=== PATIENT | female | born 1950 | race Caucasian/White ===

== ENCOUNTER 2020-01-15 10:54 | Inpatient (IN) | payer OTHER ==
[2020-01-15 12:13] LABS: Protime INR 1.14
[2020-01-15 12:15] LABS: Basophils % 0.2 % (0-1.3); Hematocrit 24.7 % (36.0-45.0); Lymphocytes % 12.4 % (15.3-44.8); MPV 8.5 fL (7.6-11.3); RBC Red Blood Cell Count 3.58 M/uL (3.86-4.86)
--- NOTE | 2020-01-15 12:36 | EKG ---
Test Date: 2020-01-15 Test Time: 11:26:40 Oven Baker: MAULIK MEASUREMENT RESULTS: Intervals: Rate: 90 OR: 130 QRSD: 78 QT: 348 QTc: 425 Mckenzie: P: 41 OR: 130 QRS: -23 T: 30 INTERPRETIVE STATEMENTS: Normal sinus rhythm Possible Left atrial enlargement RSR' or QR pattern in V1 suggests right ventricular conduction delay Left ventricular hypertrophy Abnormal ECG No previous ECG available for comparison Electronically Signed On 01-15-20 12:35:21 CDT by Tee Daniels
[2020-01-15 12:43] LABS: Anisocytosis SLIGHT; Blood Morphology Comment NOTED (NOT SEEN); Hypochromasia 1+; Platelet Estimate ADEQ; Urine White Blood Cell Casts OK
--- NOTE | 2020-01-15 12:43 | RAD REPORT ---
EXAM DESCRIPTION: RAD - Chest Single View - 01/15/2020 12:02 pm CLINICAL HISTORY: Possible CVA/TIA COMPARISON: None TECHNIQUE: AP portable chest image was obtained 01/15/2020 12:02 pm . FINDINGS: Lungs are clear. Heart and vasculature are normal. No measurable pleural effusion and no p neumothorax. No acute bony abnormality seen. No acute aortic finding. Hiatal hernia is present in the midline lower chest. IMPRESSION: No acute cardiopulmonary process.
[2020-01-15 12:55] LABS: ALT/SGPT 20 U/L (12-78); AST/SGOT 28 U/L (15-37); Albumin 4.4 g/dL (3.4-5.0); Alkaline Phosphatase 36 U/L (45-117); BUN Blood Urea Nitrogen 20 mg/dL (7-18); Bicarbonate 30 mmol/L (21-32); Bilirubin Direct 0.1 mg/dL (0-0.2); Bilirubin Total 0.4 mg/dL (0.2-1.0); Glucose Level 119 mg/dL (74-106); NT PRO-BNP 632 pg/mL (<125); Sodium Level 142 mmol/L (136-145); Troponin (Emerg Dept Use Only) < 0.02 ng/mL (0.0-0.045)
[2020-01-15 13:02] LABS: Magnesium 1.3 mg/dL (1.8-2.4); Potassium 2.9 mmol/L (3.5-5.1)
--- NOTE | 2020-01-15 13:05 | EDPHYS ---
Physician Documentation [facility] Name: Andressa Campo Age: 69 yrs Sex: Female : 1950 Arrival Date: 01/15/2020 Time: 11:00 Bed 17 Private MD: ED Physician Fahad Gill HPI: 01/14 11:42 This 69 yrs old Female presents to ER via Unassigned with complaints of kdr Abnormal Lab Results, Kidney Problem. 11:42 Dr. Valdes Called prior to the patient's arrival indicating his concern because the kdr patient had not been feeling well. He had ordered some labs which seemed to indicate worsening renal function and significant drop in Hgb. The patient does not have a focal complaint and on my interview, she is mildly confused and not able to give direct answers to questions. Onset: The symptoms/episode began/occurred gradually, at an unknown time. Severity of symptoms: At their worst the symptoms were. 13:06 It is unknown whether or not the patient has had similar symptoms in the past. The kdr patient has been recently seen by a physician: the patient's primary care provider. The patient appears slightly altered and has very tangential speech.. Historical: - Allergies: 11:44 No Known Allergies; iw - Immunization history:: Adult Immunizations up to date. - Social history:: Smoking status: Patient denies any tobacco usage or history of. ROS: 13:06 Constitutional: Negative for fever, chills, and weight loss - feel genraly weak and kdr mildly confused Eyes: Negative for injury, pain, redness, and discharge, ENT: Negative for injury, pain, and discharge, Neck: Negative for injury, pain, and swelling, Cardiovascular: Negative for chest pain, palpitations, and edema, Respiratory: Negative for shortness of breath, cough, wheezing, and pleuritic chest pain, Abdomen/GI: Negative for abdominal pain, nausea, vomiting, diarrhea, and constipation, Back: Negative for injury and pain, : Negative for injury, bleeding, discharge, and swelling, MS/Extremity: Negative for injury and deformity, Skin: Negative for injury, rash, and discoloration, Psych: Negative for depression, anxiety, suicide ideation, homicidal ideation, and hallucinations, Allergy/Immunology: Negative for hives, rash, and allergies, Endocrine: Negative for neck swelling, polydipsia, polyuria, polyphagia, and marked weight changes, Hematologic/Lymphatic: Negative for swollen nodes, abnormal bleeding, and unusual bruising. 13:06 Neuro: Positive for altered mental status, weakness. Exam: 13:06 Constitutional: This is a well developed, well nourished patient who is awake, alert, kdr and in no acute distress. Head/Face: Normocephalic, atraumatic. Eyes: Pupils equal round and reactive to light, extra-ocular motions intact. Lids and lashes normal. Conjunctiva and sclera are non-icteric and not injected. Cornea within normal limits. Periorbital areas with no swelling, redness, or edema. Neck: Trachea midline, no thyromegaly or masses palpated, and no cervical lymphadenopathy. Supple, full range of motion without nuchal rigidity, or vertebral point tenderness. No Meningismus. Chest/axilla: Normal chest wall appearance and motion. Nontender with no deformity. No lesions are appreciated. Cardiovascular: Regular rate and rhythm with a normal S1 and S2. No gallops, murmurs, or rubs. Normal PMI, no JVD. No pulse deficits. Respiratory: Lungs have equal breath sounds bilaterally, clear to auscultation and percussion. No rales, rhonchi or wheezes noted. No increased work of breathing, no retractions or nasal flaring. Abdomen/GI: Soft, non-tender, with normal bowel sounds. No distension or tympany. No guarding or rebound. No evidence of tenderness throughout. Back: No spinal tenderness. No costovertebral tenderness. Full range of motion. Skin: Warm, dry with normal turgor. Normal color with no rashes, no lesions, and no evidence of cellulitis. MS/ Extremity: Pulses equal, no cyanosis. Neurovascular intact. Full, normal range of motion. Neuro: Awake and alert, GCS 15, oriented to person, place, time, and situation. Cranial nerves II-XII grossly intact. Motor strength 5/5 in all extremities. Sensory grossly intact. Cerebellar exam normal. Normal gait. Psych: Awake, alert, with orientation to person, place and time. Behavior, mood, and affect are within normal limits. Vital Signs: 11:44 BP 161 / 87; Pulse 88; Resp 16; Temp 98.0; Pulse Ox 100% on R/A; iw 13:04 BP 166 / 76; Pulse 90; Resp 17; Pulse Ox 97% ; bp 15:00 BP 181 / 79; Pulse 90; Resp 26; Pulse Ox 97% ; bp 16:09 BP 175 / 84; Pulse 84; Resp 24; Pulse Ox 97% ; bp MDM: 13:05 Patient medically screened. kdr 13:07 Data reviewed: vital signs, nurses notes, lab test result(s), EKG, radiologic studies. kdr Counseling: I had a detailed discussion with the patient and/or guardian regarding: the historical points, exam findings, and any diagnostic results supporting the discharge/admit diagnosis, lab results, radiology results, the need for further work-up and treatment in the hospital. 01/14 11:05 Order name: Basic Metabolic Panel; Complete Time: 13:29 kdr 01/14 11:05 Order name: CBC with Diff; Complete Time: 13:29 [facility] 01/14 11:05 Order name: LFT's; Complete Time: 13:29 [facility] 01/14 11:05 Order name: Magnesium; Complete Time: 13:29 [facility] 01/14 11:05 Order name: NT PRO-BNP; Complete Time: 13:29 [facility] 01/14 11:05 Order name: PT-INR; Complete Time: 13:29 kdr 01/14 11:05 Order name: Troponin (emerg Dept Use Only); Complete Time: 13:29 [facility] 01/14 12:18 Order name: CBC Smear Scan; Complete Time: 13:29 EDMT 01/14 14:27 Order name: CBC with Automated Diff EDMS 01/14 14:27 Order name: CBC with Automated Diff EDMS 01/14 14:27 Order name: Comprehensive Metabolic Panel EDMS 01/14 14:27 Order name: Comprehensive Metabolic Panel EDMS 01/14 14:27 Order name: Protime (+INR) EDMS 01/14 14:27 Order name: Protime (+INR) EDMS 01/14 11:05 Order name: XRAY Chest (1 view); Complete Time: 13:29 kdr 01/14 11:05 Order name: EKG; Complete Time: 11:05 kdr 01/14 11:05 Order name: Cardiac monitoring; Complete Time: 11:37 kdr 01/14 11:05 Order name: EKG - Nurse/Tech; Complete Time: 12:02 kdr 01/14 11:05 Order name: IV Saline Lock; Complete Time: 12:02 kdr 01/14 11:05 Order name: Labs collected and sent; Complete Time: 12:02 kdr 01/14 11:05 Order name: O2 Per Protocol; Complete Time: 12:02 kdr 01/14 13:09 Order name: CT Head Brain wo Cont; Complete Time: 15:09 kdr 01/14 13:37 Order name: EKG Electrocardiogram EDMT 01/14 14:27 Order name: CONS Pharmacy Consult EDMT 01/14 14:27 Order name: Heart Healthy EDMT 01/14 14:27 Order name: PTT, Activated Partial Thromb EDMS 01/14 14:27 Order name: PTT, Activated Partial Thromb EDMS 01/14 11:05 Order name: O2 Sat Monitoring; Complete Time: 12:02 kdr Administered Medications: 15:30 Drug: Magnesium Sulfate 2 grams Route: IVPB; Infused Over: 2 hrs; Site: right bp antecubital; 16:26 Follow up: IV Status: Completed infusion; IV Intake: 50ml bp 15:30 Drug: Potassium Chloride 40 mEq Route: PO; bp 16:26 Drug: Potassium Chloride 20 mEq Route: IV; Rate: calculated rate; Site: right bp antecubital; Disposition: 01/15/20 13:05 Hospitalization ordered by Marques Chery for Inpatient Admission. Preliminary diagnosis are Altered mental status, unspecified, Hypokalemia, Hypercalcemia, Anemia, unspecified, Renal Failure. - Bed requested for Telemetry/MedSurg (Inpatient). - Status is Inpatient Admission. iw - Condition is Fair. - Problem is new. - Symptoms are unchanged. Signatures: Dispatcher [employer] [facility] Wendi Cartagena RN RN kl Rittger, Kevin, MD MD [facility] Freya Martinez RN RN iw Peltier, Brian, RN RN bp Corrections: (The following items were deleted from the chart) 13:30 13:05 Hospitalization Ordered by Ashutosh Devlin DO for Inpatient Admission. Preliminary [facility] diagnosis is Altered mental status, unspecified; Hypokalemia; Hypercalcemia; Anemia, unspecified; Renal Failure. Bed requested for Telemetry/MedSurg (Inpatient). Status is Inpatient Admission. Condition is Fair. Problem is new. Symptoms are unchanged. kdr 16:22 13:30 01/15/2020 13:05 Hospitalization Ordered by Marques Chery MD for Inpatient kl Admission. Preliminary diagnosis is Altered mental status, unspecified; Hypokalemia; Hypercalcemia; Anemia, unspecified; Renal Failure. Bed requested for Telemetry/MedSurg (Inpatient). Status is Inpatient Admission. Condition is Fair. Problem is new. Symptoms are unchanged. kdr 17:17 16:22 01/15/2020 13:05 Hospitalization Ordered by Marques Chery MD for Inpatient iw Admission. Preliminary diagnosis is Altered mental status, unspecified; Hypokalemia; Hypercalcemia; Anemia, unspecified; Renal Failure. Bed requested for Telemetry/MedSurg (Inpatient). Status is Inpatient Admission. Condition is Fair. Problem is new. Symptoms are unchanged. kl
--- NOTE | 2020-01-15 13:05 | ER ---
Nurse's Notes [facility] Name: Andressa Campo Age: 69 yrs Sex: Female : 1950 Arrival Date: 01/15/2020 Time: 11:00 Bed 17 Private MD: Diagnosis: Altered mental status, unspecified;Hypokalemia;Hypercalcemia;Anemia, unspecified;Renal Failure Presentation: 01/14 11:42 Chief complaint: Patient states: was sent by Dr. Valdes's office for abnormal labs, has iw been feeling tired and not herself for a few weeks, also has had mid back pain, was told she had a problem with her kidneys. Coronavirus screen: Client denies travel out of the [place] in the last 14 days. At this time, the client does not indicate any symptoms associated with coronavirus-19. The client reports previous COVID testing was negative. was tested in [place] last Monday. 11:42 Method Of Arrival: Wheelchair iw 11:45 Ebola Screen: Patient negative for fever greater than or equal to 101.5 degrees iw Fahrenheit, and additional compatible Ebola Virus Disease symptoms Patient denies exposure to infectious person. Patient denies travel to an Ebola-affected area in the 21 days before illness onset. No symptoms or risks identified at this time. 11:45 Acuity: PRATIMA 3 iw 16:54 Initial Sepsis Screen: Does the patient meet any 2 criteria? No. Patient's initial bp sepsis screen is negative. Does the patient have a suspected source of infection? No. Patient's initial sepsis screen is negative. Risk Assessment: Do you want to hurt yourself or someone else? Patient reports no desire to harm self or others. Onset of symptoms is unknown. Triage Assessment: 11:45 General: Appears in no apparent distress. comfortable, obese, Behavior is cooperative, bp appropriate for age, anxious. Pain: Denies pain. EENT: No deficits noted. Neuro: Level of Consciousness is awake, alert, obeys commands, Oriented to person, place. Cardiovascular: No deficits noted. Respiratory: No deficits noted. GI: No signs and/or symptoms were reported involving the gastrointestinal system. : No signs and/or symptoms were reported regarding the genitourinary system. Derm: No deficits noted. Musculoskeletal: No deficits noted. Historical: - Allergies: 11:44 No Known Allergies; iw - Immunization history:: Adult Immunizations up to date. - Social history:: Smoking status: Patient denies any tobacco usage or history of. Screenin:45 Abuse screen: Denies threats or abuse. Denies injuries from another. Nutritional bp screening: No deficits noted. Tuberculosis screening: No symptoms or risk factors identified. Fall Risk None identified. Assessment: 11:45 General: SEE TRIAGE NOTE. bp 13:04 Reassessment: ALL CURRENT ORDERS COMPLETE AND RESULTED, DISPO PENDING. bp 15:00 Reassessment: ADMIT IN PROCESS, NO BED AVAILABLE. bp 16:00 Reassessment: ADMIT REMAINS IN PROCESS. bp 16:56 Reassessment: ADMIT COMPLETE, TRANSPORT DELAYED FOR HOSPITALIST AT B/S. bp Vital Signs: 11:44 BP 161 / 87; Pulse 88; Resp 16; Temp 98.0; Pulse Ox 100% on R/A; iw 13:04 BP 166 / 76; Pulse 90; Resp 17; Pulse Ox 97% ; bp 15:00 BP 181 / 79; Pulse 90; Resp 26; Pulse Ox 97% ; bp 16:09 BP 175 / 84; Pulse 84; Resp 24; Pulse Ox 97% ; bp ED Course: 11:00 Patient arrived in ED. ag5 11:02 Fahad Gill MD is Attending Physician. kdr 11:14 Paul Buck, REJI is Primary Nurse. bp 11:45 Triage completed. iw 11:45 Patient has correct armband on for positive identification. Placed in gown. Bed in low bp position. Call light in reach. Side rails up X2. Adult w/ patient. monitoring manager on. Pulse ox on. NIBP on. 11:45 Arm band placed on. bp 11:55 Inserted saline lock: 20 gauge in right forearm, using aseptic technique. Blood bp collected. 12:02 XRAY Chest (1 view) In Process Unspecified. EDMS 13:03 Ashutosh Devlin DO is Hospitalizing Provider. kdr 13:16 CT Head Brain wo Cont Sent. bp 13:28 CT Head Brain wo Cont In Process Unspecified. EDMS 13:30 Marques Chery MD is Hospitalizing Provider. kdr 16:53 No provider procedures requiring assistance completed. Patient admitted, IV remains in bp place. Administered Medications: 15:30 Drug: Magnesium Sulfate 2 grams Route: IVPB; Infused Over: 2 hrs; Site: right bp antecubital; 16:26 Follow up: IV Status: Completed infusion; IV Intake: 50ml bp 15:30 Drug: Potassium Chloride 40 mEq Route: PO; bp 16:26 Drug: Potassium Chloride 20 mEq Route: IV; Rate: calculated rate; Site: right bp antecubital; Intake: 16:26 IV: 50ml; Total: 50ml. bp Outcome: 13:05 Decision to Hospitalize by Provider. kdr 16:54 Admitted to Tele accompanied by tech, via wheelchair, room 219, with chart, Report bp called to EKATERINA MENDOZA 16:54 Condition: stable 16:54 Instructed on the need for admit. 17:17 Patient left the ED. iw Signatures: Dispatcher [employer] EDMS Fahad Gill MD MD kdr Freya Martinez RN REJI iw Paul Buck RN RN bp Vikash Light ag5 Corrections: (The following items were deleted from the chart) 16:57 16:56 Reassessment: ADMIT COMPLETE, PT ANTONIO RM 219 WITH EKATERINA MENDOZA bp bp
--- OUTSIDE RECORDS SUMMARY | 2020-01-15 13:39 | XMS REPORT | Continuity of Care Document ---
:1950 Author Organization [facility] t Address [address] [place] [address] Care Team Providers Name Role Phone Nurse, Urgent Attending Clinician Unavailable Pob1, Care Clinic Attending Clinician Unavailable Doctor Unassigned, Name Attending Clinician Unavailable Problems This patient has no known problems. Allergies, Adverse Reactions, Alerts This patient has no known allergies or adverse reactions. Medications This patient has no known medications. Procedures This patient has no known procedures. Encounters Start End Encounter Admission Attending Care Care Encounter Source Date/Time Date/Time Type Type Clinicians Facility Department ID 2020-01-06 2020-01-06 Telephone Nurse, Avi [facility] [id number] 00:00:00 00:00:00 Urgent HEALTH [id number] [place] [id number] [facility] [id number] Primary & 370 Specialty Care 2020-01-05 2020-01-05 Urgent Pob1, Acute [facility] [id number] 14:41:49 15:01:49 [facility] [id number] [facility] [phone] [address] 2020-01-05 2020-01-05 Letter Doctor [place] [id number] 00:00:00 00:00:00 (Out) UnassignedTHELMA [id number] Results This patient has no known results.
--- OUTSIDE RECORDS SUMMARY | 2020-01-15 13:39 | XMS REPORT | Summary of Care ---
:1950 Author Organization [facility] - [facility] Address [address] [place] [address] Care Team Providers Name Role Phone Pcp, Patient Does Not Have A Primary Care Provider +[id number] 0-0000 Reason for Visit Reason Comments Cough SNEEZING WHEEZING Encounter Details Date Type Department Care Team Description 01/05/2020 Urgent Care [facility] Family Jared Niki patricia, HEATING REPAIR TECHNICIAN [address] [place] [address] [phone] Viral illness (Primary Dx); [place] [address], Acute Care [facility] Suspected Covid-19 Virus Infection [address] [place] [phone] Allergies No Known Allergiesdocumented as of this encounter (statuses as of 01/05/2020) Medications Medication Sig Dispensed Refills Start Date End Date Status predniSONE 5 mg tablet Take 1 tablet by 0 12/23/2019 Active mouth. Every other week acetaminophen-codeine Take 1 tablet by 0 12/23/2019 Active 300-15 mg tablet mouth as needed. documented as of this encounter (statuses as of 01/05/2020) Active Problems No known active problemsdocumented as of this encounter (statuses as of 01/05/2020) Social History Tobacco Use Types Packs/Day Years Used Date Never Smoker Smokeless Tobacco: Never Used Sex Assigned at Date Recorded Not on file COVID-19 Exposure Response Date Recorded In the last month, have you been in contact with No / Unsure 01/05/2020 2:46 PM CDT someone who was confirmed or suspected to have Coronavirus / COVID-19? documented as of this encounter Last Filed Vital Signs Vital Sign Reading Time Taken Comments Blood Pressure 170/82 01/05/2020 2:54 PM CDT Pulse 94 01/05/2020 2:50 PM CDT Temperature 37 C (98.6 F) 01/05/2020 2:50 PM CDT Respiratory Rate 18 01/05/2020 2:50 PM CDT Oxygen Saturation 96% 01/05/2020 2:50 PM CDT Inhaled Oxygen Concentration - - Weight 74.8 kg (165 lb) 01/05/2020 2:50 PM CDT Height - - Body Mass Index - - documented in this encounter Patient Instructions Patient InstructionsLinda Block FNP - 01/05/2020 3:00 PM CDT1. Viral illness 2. Suspected Covid-19 Virus Infection - COVID-19 (PCR MOLECULAR TESTING); Future - COVID-19 (PCR MOLECULAR TESTING) - Quarantine until your COVID results are back Criteria met - Covid testing - pending. This test can take 2-3 days to be resulted. While the test is pending...Please socially isolate your self - do not go out to stores or out in public. We will contact you once we have the results. If you are negative - continue with symptomatic treatment. (see below) Patients who have positive results will be contacted by the health department to enforce quarantine measures and for additional community contact tracing. The Infection Control Department will also undertake evaluation of exposures in our healthcare facility. If symptoms worsen - please call your Primary Care Doctor - do not go into the clinic. Call first. Educated on the following at home care: - Discussed likely viral diagnosis and treatment plan with pt. - pt advised on frequent effective handwashing - pt advised to increase fluid intake , stay hydrated and get plenty of rest. - advised to have the pt take OTC to treat symptoms. - Pt advised to administer Tylenol as per label recommendation as needed for pain or fever - Cover mouth when coughing, wear mask - Stay in your own bedroom and use a separate bathroom - Keep at least 6 feet from you and others - Avoid sharing personal household items, dishes, glasses, cups, towels -Clean high traffic/touch areas daily. These include but not limited to: doorknobs, refrigerator/cabinet handles, phones, keyboards, tablets, light switches. - AVS and Written/handout materials appropriate to problem and teaching provided. - advised to go to the nearest Emergency Department sooner for any new, worsening, persistent, or concerning symptoms - Patient verbalized understanding of all instructions - Follow-up with PCP as needed, if no improvement EDUCATION: Handouts given: Patient educated on plan of care for visit, swabbing technique,risks and benefits of test and lengthof time to receive results. Verbal consent obtained to perform test. CDC Fact Sheet for patients nCoV Diagnostic Panel dated 08/18/2019 provided. "What to do if you are sick with COVID-19" CDC information guide reviewed with the patient and handout given to patient Education given to self quarantine until results are back. Will notify patient with results. Patient states understanding and all questions answered. Plan of care, goals and medications discussed with patient. Patient voices understanding. Barriers to care: none Ability to manage care: good FOLLOW UP: Pt advised to call 911 or go to the nearest Emergency Department sooner for any worsening, persistent, or concerning symptoms ER precautions given Plan of care, desired health behaviors, goals, and medication discussed with patient. Education resources provided and reviewed with AVS. Patient/guardian/family verbalized understanding & agrees to plan of care. If applicable, the [place] [employer] database was accessed to review any controlled substance prescription claims data. The [employer] prescription claims data in [employer] was reviewed to assess patient compliance with the medication treatment plan. Urgent Care precautions and follow up : 1. Return to clinic if your symptoms should worsen or fail to improve within 72 hours. 2. The care provided in the urgent care was for acute problems only. 3. You should follow up with your primary care provider within 72 hours. 4. Make sure you are staying adequately hydrated. MAY FOLLOW-UP WITH A PROVIDER OF YOUR CHOICE, SUCH : 1. A PHYSICIAN OF YOUR CHOICE OR, IF YOU WISH TO FOLLOW-UP WITHIN THE [facility], MAY TRY THESE OPTIONS (CLINIC APPOINTMENTS AVAILABLE ON [id number] BASIS): 1. SCHEDULE AN APPOINTMENT ONLINE AT [facility] 2. OR CALL THE [facility] ACCESS CENTER AT OR 3. OR CALL YOUR [facility] PHYSICIAN'S OFFICE DIRECTLY IF YOU ARE ALREADY AN ESTABLISHED [facility] PATIENT. After hours care nurse access center available by calling [phone] 24 hours 7 days per week. Linda B[facility] documented in this encounter Progress Notes Linda Block, HEATING REPAIR TECHNICIAN - 01/05/2020 3:00 PM CDT Cc: Chief Complaint Patient presents with Cough SNEEZING WHEEZING Andressa Campo is a 69 year old female presents with concern for cough and wheezing. She started about 2 weeks ago with runny nose, sneezing and cough. She's not taking any otc medications. Denies any fever or chills. Decreased appetite but drinking good fluids and having normal urine output. 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 URI Presenting symptoms: congestion, cough and rhinorrhea Presenting symptoms: no fatigue, no fever and no sore throat Congestion: Location: Nasal Interferes with sleep: no Interferes with eating/drinking: no Cough: Cough characteristics: Dry Severity: Mild Onset quality: Gradual Duration: 2 weeks Timing: Intermittent Progression: Unchanged Chronicity: New Severity: Mild Onset quality: Gradual Duration: 2 weeks Timing: Intermittent Progression: Unchanged Chronicity: New Relieved by: None tried Worsened by: Nothing Ineffective treatments: None tried Associated symptoms: sneezing Associated symptoms: no arthralgias, no headaches, no myalgias, no neck pain, no sinus pain, no swollen glands and no wheezing Risk factors: being elderly and sick contacts Risk factors: no recent illness and no recent travel Allergies Andressa has no allergies on file. Medications Outpatient Medications Prior to Visit Medication Sig Dispense Refill acetaminophen-codeine 300-15 mg tablet Take 1 tablet by mouth as needed. predniSONE 5 mg tablet Take 1 tablet by mouth. Every other week No facility-administered medications prior to visit. Histories History reviewed. No pertinent past medical history. Social History Tobacco Use Smoking status: Never Smoker Smokeless tobacco: Never Used Substance Use Topics Alcohol use: Not on file Review of Systems Constitutional: Negative for chills, fatigue and fever. HENT: Positive for congestion, rhinorrhea and sneezing. Negative for sinus pain and sore throat. Respiratory: Positive for cough. Negative for shortness of breath, wheezing and stridor. Gastrointestinal: Negative for diarrhea, nausea and vomiting. Musculoskeletal: Negative for arthralgias, myalgias and neck pain. Skin: Negative for rash. Neurological: Negative for dizziness, weakness and headaches. All other systems reviewed and are negative. Vital Signs BP (!) 172/80 (BP Location: Right arm, Patient Position: Sitting, BP CUFF SIZE: Adult Medium) | Pulse 94 | Temp 37 C (98.6 F) (Oral) | Resp 18 | Wt 165 lb (74.8 kg) | SpO2 96% Physical Exam Vitals signs and nursing note reviewed. Constitutional: Appearance: She is well-developed. HENT: Head: Normocephalic and atraumatic. Right Ear: Tympanic membrane, ear canal and external ear normal. Left Ear: Tympanic membrane, ear canal and external ear normal. Nose: Mucosal edema, congestion and rhinorrhea present. Mouth/Throat: Lips: [place]. Mouth: Mucous membranes are moist. Pharynx: Oropharynx is clear. Tonsils: 1+ on the right. 1+ on the left. Eyes: Conjunctiva/sclera: Conjunctivae normal. Neck: Musculoskeletal: Normal range of motion and neck supple. Cardiovascular: Rate and Rhythm: Normal rate and regular rhythm. Heart sounds: Normal heart sounds. No murmur. No friction rub. No gallop. Pulmonary: Effort: Pulmonary effort is normal. No accessory muscle usage or respiratory distress. Breath sounds: Normal breath sounds. No decreased breath sounds, wheezing, rhonchi or rales. Musculoskeletal: Normal range of motion. Skin: General: Skin is warm and dry. Neurological: Mental Status: She is alert and oriented to person, place, and time. Psychiatric: Behavior: Behavior normal. Assessment/Plan Andressa Campo is a 69 year old female presents with concern for cough and wheezing. 1. Viral illness 2. Suspected Covid-19 Virus Infection - COVID-19 (PCR MOLECULAR TESTING); Future - COVID-19 (PCR MOLECULAR TESTING) - Quarantine until your COVID results are back Criteria met - Covid testing - pending. This test can take 2-3 days to be resulted. While the test is pending...Please socially isolate your self - do not go out to stores or out in public. We will contact you once we have the results. If you are negative - continue with symptomatic treatment. (see below) Patients who have positive results will be contacted by the health department to enforce quarantine measures and for additional community contact tracing. The Infection Control Department will also undertake evaluation of exposures in our healthcare facility. If symptoms worsen - please call your Primary Care Doctor - do not go into the clinic. Call first. Educated on the following at home care: - Discussed likely viral diagnosis and treatment plan with pt. - pt advised on frequent effective handwashing - pt advised to increase fluid intake , stay hydrated and get plenty of rest. - advised to have the pt take OTC to treat symptoms. - Pt advised to administer Tylenol as per label recommendation as needed for pain or fever - Cover mouth when coughing, wear mask - Stay in your own bedroom and use a separate bathroom - Keep at least 6 feet from you and others - Avoid sharing personal household items, dishes, glasses, cups, towels -Clean high traffic/touch areas daily. These include but not limited to: doorknobs, refrigerator/cabinet handles, phones, keyboards, tablets, light switches. - AVS and Written/handout materials appropriate to problem and teaching provided. - advised to go to the nearest Emergency Department sooner for any new, worsening, persistent, or concerning symptoms - Patient verbalized understanding of all instructions - Follow-up with PCP as needed, if no improvement EDUCATION: Handouts given: Patient educated on plan of care for visit, swabbing technique,risks and benefits of test and lengthof time to receive results. Verbal consent obtained to perform test. CDC Fact Sheet for patients nCoV Diagnostic Panel dated 08/18/2019 provided. "What to do if you are sick with COVID-19" CDC information guide reviewed with the patient and handout given to patient Education given to self quarantine until results are back. Will notify patient with results. Patient states understanding and all questions answered. Plan of care, goals and medications discussed with patient. Patient voices understanding. Barriers to care: none Ability to manage care: good FOLLOW UP: Pt advised to call 911 or go to the nearest Emergency Department sooner for any worsening, persistent, or concerning symptoms ER precautions given Plan of care, desired health behaviors, goals, and medication discussed with patient. Education resources provided and reviewed with AVS. Patient/guardian/family verbalized understanding & agrees to plan of care. If applicable, the [place] [employer] database was accessed to review any controlled substance prescription claims data. The [employer] prescription claims data in [employer] was reviewed to assess patient compliance with the medication treatment plan. Urgent Care precautions and follow up : 1. Return to clinic if your symptoms should worsen or fail to improve within 72 hours. 2. The care provided in the urgent care was for acute problems only. 3. You should follow up with your primary care provider within 72 hours. 4. Make sure you are staying adequately hydrated. MAY FOLLOW-UP WITH A PROVIDER OF YOUR CHOICE, SUCH : 1. A PHYSICIAN OF YOUR CHOICE OR, IF YOU WISH TO FOLLOW-UP WITHIN THE [facility], MAY TRY THESE OPTIONS (CLINIC APPOINTMENTS AVAILABLE ON [id number] BASIS): 1. SCHEDULE AN APPOINTMENT ONLINE AT [facility] 2. OR CALL THE [facility] ACCESS CENTER AT OR 3. OR CALL YOUR [facility] PHYSICIAN'S OFFICE DIRECTLY IF YOU ARE ALREADY AN ESTABLISHED [facility] PATIENT. After hours care nurse access center available by calling [phone] 24 hours 7 days per week. Linda B[facility] documented in this encounter Plan of Treatment Name Type Priority Associated Diagnoses Order S ross COVID-19 (PCR MOLECULAR LAB Routine Suspected Covid-1 9 Virus Expected: 01/05/2020, TESTING) Infection Expires: 2020 Health Maintenance Due Date Last Done Comments HEPATITIS C (HCV) SCREEN 1950 Depression Screening 1960 DTaP,Tdap,and Td Vaccines (1 - Tdap) 08/26/1967 Breast Cancer Screening (MAMMOGRAM) 1988 COLON CANCER SCREENING ANNUAL FIT/FOBT 1998 COLON CANCER SCREENING FIT DNA EVERY 3 YEARS 1998 COLON CANCER SCREENING SIGMOIDOSCOPY EVERY 5 YEARS 1998 COLONOSCOPY 1998 Colorectal Cancer Screening 1998 Zoster Recombinant Vaccine (SHINGRIX) (1 of 2) 1998 Medicare Wellness Visit 2013 Osteoporosis Screening 2013 PNEUMOCOCCAL VACCINES 65+ (1 of 1 - PPSV23) 2013 INFLUENZA VACCINE (#1) 2020 documented as of this encounter Results Not on filedocumented in this encounter Visit Diagnoses Diagnosis Viral illness - Primary Unspecified viral infection, in conditio ns classified elsewhere and of unspecified site Suspected Covid-19 Virus Infection documented in this encounter Additional Health Concerns Infection Onset Date Last Indicated Resolved Time COVID-19 Rule Out 01/05/2020 01/05/2020 documented as of this encounter Insurance Payer Benefit Plan / Subscriber ID Effective Dates Phone Addre ss Type Group MEDICARE MEDICARE PART [id number] 2013-Ignacio [phone] Medicare A & B t 2 [id number] [place] [phone] documented as of this encounter
--- OUTSIDE RECORDS SUMMARY | 2020-01-15 13:39 | XMS REPORT | Summary of Care ---
:1950 Author Organization [facility] Address [address] [place] [address] Care Team Providers Name Role Phone Pcp, Patient Does Not Have A Primary Care Provider +1-000-00 0-0000 Reason for Visit Reason Comments Lab Results Encounter Details Date Type Department Care Team Description 01/06/2020 Telephone [facility] Urgent Care Nurse, [facility] Urgent Lab Results [id number] [address] Parker[place] [phone] Allergies No Known Allergiesdocumented as of this encounter (statuses as of 01/06/2020) Medications Medication Sig Dispensed Refills Start Date End Date Status predniSONE 5 mg tablet Take 1 tablet by 0 12/23/2019 Active mouth. Every other week acetaminophen-codeine Take 1 tablet by 0 12/23/2019 Active 300-15 mg tablet mouth as needed. documented as of this encounter (statuses as of 01/06/2020) Active Problems No known active problemsdocumented as of this encounter (statuses as of 01/06/2020) Social History Tobacco Use Types Packs/Day Years [...] of this encounter Last Filed Vital Signs Not on filedocumented in this encounter Miscellaneous Notes Telephone Encounter - Abiola Osman LVN - 01/06/2020 12:33 PM CDTCalled patient regarding Covid results. Left message for patient on home phone to call back. Called patient on cell phone regarding results. Left message for patient to call back. Your COVID 19 testing results were negative. At this time, the COVID 19 virus was NOT found in your sample. Continue to protect yourself by wearing a facemask and washing your hands frequently. If youhave not had symptoms, you may return to work immediately. If you had symptoms, you may return to work or school when you are feeling better and have not had a fever for 24 hours or more without takingfever reducing medications such as acetaminophen or ibuprofen and are 10 days from your first symptoms. Wear a mask until it has been greater than 14 days from when your first symptoms appeared. If you are a [facility] or contract employee or student, please refer to this website for more information https: [email or web address]. If you feel you are not getting better, please call the Access Center at [phone] or toll free to schedule a telehealth visit or face to face visit with a provider. Most acute illnesses resolve within 7 days. documented in this encounter Plan of Treatment Health Maintenance Due Date Last Done Comments [...] Results Not on filedocumented in this encounter Additional Health Concerns Infection Onset Date Last Indicated Resolved Time COVID-19 Rule Out 01/05/2020 01/05/2020 01/06/2020 11: 43 AM CDT documented as of this encounter Insurance Payer Benefit Plan / Subscriber ID Effective Dates Phone Addre ss Type Group MEDICARE MEDICARE PART [id number] 2013-Ignacio [phone] [address] Medicare A & B t 2 [id number] [place] [id number] documented as of this encounter
--- OUTSIDE RECORDS SUMMARY | 2020-01-15 13:39 | XMS REPORT | Summary of Care ---
:1950 Author Organization [facility] - Health Address [address] [place] [address] Care Team Providers Name Role Phone Pcp, Patient Does Not Have A Primary Care Provider +1-000-00 0-0000 Encounter Details Date Type Department Care Team Description 01/05/2020 Letter (Out) [facility] Caesar Message s Doctor Unassigned, No [address] [facility] [place] [address] [address] [facility] [phone] [place] [address] Allergies Not on Filedocumented as of this encounter (statuses as of 01/05/2020) Medications Not on filedocumented as of this encounter (statuses as of 01/05/2020) Active Problems Not on filedocumented as of this encounter (statuses as of 01/05/2020) Social History Tobacco Use Types Packs/Day Years Used Date Never Assessed Sex Assigned at Date Recorded Not on file documented as of this encounter Last Filed Vital Signs Not on filedocumented in this encounter Plan of Treatment Date Type Specialty Care Team Description 01/05/2020 Urgent Care Family Medicine Damián Coleman, SOFT WORK WRAPPER EXAMINER [address] [place] [address] [phone] Pob[facility], Acute Care Clinic Health Maintenance Due Date Last Done Comments [...] Results Not on filedocumented in this encounter Insurance Payer Benefit Plan / Subscriber ID Effective Dates Phone Addre ss Type Group MEDICARE MEDICARE PART [id number] 2013-Ignacio [phone] [address] Medicare A & B t 2 [id number] [place] [phone] documented as of this encounter
--- NOTE | 2020-01-15 13:54 | RAD REPORT ---
EXAM DESCRIPTION: CT - Head Brain Wo Cont - 01/15/2020 1:28 pm CLINICAL HISTORY: Alteration of awareness/confusion COMPARISON: None TECHNIQUE: Computed axial tomography of the head was obtained. IV contrast was not requested. All CT scans are performed using dose optimization technique as appropriate and may include automated exposure control or mA/KV adjustment according to patient size. FINDINGS: An intracranial bleed is not seen . The ventricles are normal in caliber. No extra-axial fluid collection is noted. Mild low-density areas within periventricular, deep and subcortical white matter likely represent isc hemic changes secondary to small vessel disease. Fluid within the sinuses/ mastoids is not seen. IMPRESSION: No acute intracranial abnormality is seen. If patient's symptoms persist MRI of the bra in would be recommended.
[2020-01-15] MEDS ORDERED: NA CHLORIDE 0.9% 1,000 ML IV SCH (15:00)
[2020-01-15] MEDS ORDERED: NA CHLORIDE 0.9% 250 ML ONE ×2 (15:57→23:48)
[2020-01-15] MEDS ORDERED: POTASSIUM 25 MEQ EFFERV TAB ONE (15:57)
[2020-01-15] MEDS ORDERED: KCL 20 MEQ/100 mL IVPB 20 MEQ/100 ML BAG IV ONE (15:57)
[2020-01-15] MEDS ORDERED: Magnesium Sulfate 2gm IVPB 2 G/50 ML BAG IV ONE ×2 (15:57→18:00)
[2020-01-15] MEDS ORDERED: PAMIDRONATE 60 MG in NA CHLORIDE 0.9% 500 ML IV SCH (16:00)
[2020-01-15] MEDS ORDERED: PAMIDRONATE DISOD 30 MG VIAL IV ONE (16:00)
[2020-01-15] MEDS: FUROSEMIDE 20 MG/ 2ML VIAL IV SCH (18:10)
[2020-01-15] MEDS: NA CHLORIDE 0.9% 1,000 ML IV SCH (18:10)
[2020-01-15 18:28] LABS: Hematocrit 24.1 % (36.0-45.0)
[2020-01-16] MEDS: FUROSEMIDE 20 MG/ 2ML VIAL IV SCH ×3 (03:12→16:31)
[2020-01-16 04:40] LABS: Basophils % 0.3 % (0-1.3); Hematocrit 27.3 % (36.0-45.0); Lymphocytes % 15.1 % (15.3-44.8); MPV 8.7 fL (7.6-11.3); RBC Red Blood Cell Count 3.73 M/uL (3.86-4.86)
[2020-01-16 04:42] LABS: Protime INR 1.05
[2020-01-16 05:10] LABS: Albumin 3.8 g/dL (3.4-5.0); Bilirubin Total 0.7 mg/dL (0.2-1.0); Potassium 3.1 mmol/L (3.5-5.1); Protein, Total 7.1 g/dL (6.4-8.2)
[2020-01-16] MEDS: NA CHLORIDE 0.9% 1,000 ML IV SCH ×4 (06:01→23:58)
--- NOTE | 2020-01-16 07:30 | EKG ---
Test Date: 2020-01-15 Test Time: 11:45:02 Brand Executive: MAULIK MEASUREMENT RESULTS: Intervals: Rate: 88 MD: 128 QRSD: 80 QT: 354 QTc: 428 [place]: P: 43 MD: 128 QRS: -24 T: -17 INTERPRETIVE STATEMENTS: Normal sinus rhythm Voltage criteria for left ventricular hypertrophy Nonspecific ST abnormality Abnormal ECG Compared to ECG 01/15/2020 11:26:40 ST (T wave) deviation now present Electronically Signed On 01-16-20 07:28:41 CDT by Tee Daniels
[2020-01-16] MEDS ORDERED: PNEUMOCOCCAL VACCINE 0.5 ML IMVAC ONE (08:00)
[2020-01-16] MEDS ORDERED: POTASSIUM 25 MEQ EFFERV TAB PO ONE ×2 (09:00→16:30)
[2020-01-16] MEDS ORDERED: NA CHLORIDE 0.9% 500 ML IV ONE ×3 (09:26→16:34)
--- NOTE | 2020-01-16 09:39 | P.HP ---
Certification for Inpatient Patient admitted to: Inpatient With expected LOS: >2 Midnights Patient will require the following post-hospital care: None Practitioner: I am a practitioner with admitting privileges, knowledge of patient current condition, hospital course, and medical plan of care. Services: Services provided to patient in accordance with Admission requirements found in Title 42 Section 412.3 of the Code of Federal Regulations Patient History Date of Service: 01/15/20 Reason for admission: Hypercalcemia; altered mental status; acute blood loss anemia History of Present Illness: Patient's and will female who presents to the hospital with severe anemia and hypercalcemia. According to the family that she has been confused for the last few weeks. Whenever they talked to her on the phone, she did not sound like herself. She had multiple family members talking to her and she was very confused. They spoke to her PCP, Dr. Valdes, who recommended labs. Patient was found to have severe hypercalcemia and anemia. Patient was sent to the hospital for admission. Unknown etiology of the hypercalcemia for the anemia. Will continue with lab testing. Hopefully, will be able to work patient up and get answers regarding etiology. Also concern for multiple myeloma as patient with elevated renal function. Patient be admitted to the hospital for inpatient workup. Allergies No Known Allergies Allergy (Unverified 01/15/20 17:24) - Past Medical/Surgical History Has patient received pneumonia vaccine in the past: No Diabetic: No -: Diverticulitis -: Shingles -: Bleeding ulcer -: Endoscopy - Family History Father Medical History: Other (see notes) Notes: suicide - Social History Smoking Status: Never smoker Alcohol use: No CD- Drugs: No Caffeine use: No Place of Residence: Home Review of Systems 10-point ROS is otherwise unremarkable Physical Examination - Vital Signs Temperature: 97.4 F Blood Pressure: 168/72 Pulse: 82 Respirations: 18 Pulse Ox (%): 94 - Physical Exam General: Alert, In no apparent distress, Oriented x2, Other (Patient appears to be confused and she laughs at just about everything) HEENT: Atraumatic, PERRLA, Mucous membr. moist/pink, EOMI, Sclerae nonicteric Neck: Supple, 2+ carotid pulse no bruit, No LAD, Without JVD or thyroid abnormality Respiratory: Clear to auscultation bilaterally, Normal air movement Cardiovascular: Regular rate/rhythm, Normal S1 S2, No murmurs Gastrointestinal: Normal bowel sounds, Soft and benign, Non-distended, No tenderness Musculoskeletal: No clubbing, No swelling, No tenderness Integumentary: No rashes Neurological: Normal tone, Sensation intact, Cranial nerves 3-12 intact, Normal affect, Abnormal gait, Abnormal speech, Abnormal tone Lymphatics: No axilla or inguinal lymphadenopathy - Studies Laboratory Data (last 24 hrs) 01/15/20 11:55: PT 13.4 H, INR 1.14 01/15/20 11:55: WBC 8.1, Hgb 7.7 L*, Hct 24.7 L, Plt Count 264 01/15/20 11:55: Sodium 142, Potassium 2.9 L*, BUN 20 H, Creatinine 1.75 H, Glucose 119 H, Magnesium 1.3 L*, Total Bilirubin 0.4, AST 28, ALT 20, Alkaline Phosphatase 36 L Assessment & Plan - Problems (Diagnosis) (1) Hypercalcemia Current Visit: Yes Status: Acute (2) AMS (altered mental status) Current Visit: Yes Status: Acute (3) Anemia due to acute blood loss Current Visit: Yes Status: Acute - Plan Plan: 1. Aggressive IV hydration & IV Lasix 2. Pamidronate 3. Transfuse 1 unit of packed red blood cells 4. Protein electrophoresis 5. Intact PTH and parathyroid hormone related peptide levels as well as vitamin- D levels 6. CT of the neck, chest, abdomen, and pelvis looking for malignancy as the etiology of hypercalcemia 7. Imperative to find the etiology of the hypercalcemia so we can get this corre cted. Otherwise patient calcium level will continue to climb and patient will develop altered mental status again. 8. GI and DVT prophylaxis Discharge Plan: Home Plan to discharge in: Greater than 2 days - Advance Directives Does patient have a Living Will: Yes Does patient have a Durable POA for Healthcare: No - Code Status/Comfort Care Code Status Assessed: Yes Code Status: Full Code Critical Care: No Time Spent Managing PTS Care (In Minutes): 45
--- NOTE | 2020-01-16 09:45 | P.PN ---
Subjective Date of Service: 01/16/20 Potassium level still elevated. Altered mental status improving. Renal function still elevated. Will hold off on CT scan at this time. Continue to hydrate and correct calcium levels. Review of Systems 10-point ROS is otherwise unremarkable Physical Examination - Vital Signs Temperature: 97.4 F Blood Pressure: 168/72 Pulse: 82 Respirations: 18 Pulse Ox (%): 94 - Physical Exam General: Alert, In no apparent distress, Oriented x2 Respiratory: Clear to auscultation bilaterally, Normal air movement Cardiovascular: Regular rate/rhythm, Normal S1 S2, No murmurs Gastrointestinal: Normal bowel sounds, Soft and benign, Non-distended, No tenderness Musculoskeletal: No tenderness Integumentary: No rashes Neurological: Sensation intact, Cranial nerves 3-12 intact, Abnormal speech, Abnormal strength Lymphatics: No axilla or inguinal lymphadenopathy - Studies Laboratory Data (last 24 hrs) 01/15/20 11:55: PT 13.4 H, INR 1.14 01/15/20 11:55: WBC 8.1, Hgb 7.7 L*, Hct 24.7 L, Plt Count 264 01/15/20 11:55: Sodium 142, Potassium 2.9 L*, BUN 20 H, Creatinine 1.75 H, Glucose 119 H, Magnesium 1.3 L*, Total Bilirubin 0.4, AST 28, ALT 20, Alkaline Phosphatase 36 L Medications List Reviewed: Yes Assessment & Plan - Problems (Diagnosis) (1) Hypercalcemia Current Visit: Yes Status: Acute (2) AMS (altered mental status) Current Visit: Yes Status: Acute (3) Anemia due to acute blood loss Current Visit: Yes Status: Acute - Plan Plan: 1. Aggressive IV hydration & IV Lasix 2. Pamidronate 3. Transfuse 1 unit of packed red blood cells 4. Protein electrophoresis 5. Intact PTH and parathyroid hormone related peptide levels as well as vitamin- D levels 6. CT of the neck, chest, abdomen, and pelvis looking for malignancy as the etiology of hypercalcemia 7. Imperative to find the etiology of the hypercalcemia so we can get this corrected. Otherwise patient calcium level will continue to climb and patient will develop altered mental status again. 8. GI and DVT prophylaxis - Advance Directives Does patient have a Living Will: Yes Does patient have a Durable POA for Healthcare: No - Code Status/Comfort Care Code Status: Full Code
[2020-01-16] MEDS ORDERED: POTASSIUM 25 MEQ EFFERV TAB ONE (16:37)
[2020-01-16] MEDS ORDERED: NA CHLORIDE 0.9% 500 ML ONE (16:51)
[2020-01-16] MEDS ORDERED: PAMIDRONATE DISOD 30 MG VIAL IV ONE (17:00)
[2020-01-16] MEDS ORDERED: PAMIDRONATE 90 MG in NA CHLORIDE 0.9% 500 ML IV ONE (18:00)
[2020-01-16 18:35] LABS: Absolute Lymphocytes (CBC) 0.3 K/uL (0.7-4.9); Basophils % 0.4 % (0-1.3); Hematocrit 27.7 % (36.0-45.0); Lymphocytes % 5.7 % (15.3-44.8); MPV 8.2 fL (7.6-11.3)
[2020-01-16 18:54] LABS: Magnesium 1.6 mg/dL (1.8-2.4); Potassium 4.2 mmol/L (3.5-5.1)
[2020-01-16] MEDS: MORPHINE 2 MG/ML SYR IV PRN (20:01)
[2020-01-16 21:02] LABS: Anisocytosis 1+; Blood Morphology Comment NOTED (NOT SEEN); Hypochromasia 1+; Platelet Estimate ADEQ; Polychromasia 1+; Urine White Blood Cell Casts OK
[2020-01-17] MEDS: FUROSEMIDE 20 MG/ 2ML VIAL IV SCH (00:20)
[2020-01-17] MEDS: MORPHINE 2 MG/ML SYR IV PRN ×2 (00:27→08:35)
[2020-01-17 01:42] LABS: Urine Appearance CLEAR; Urine Bilirubin NEGATIVE (NEG); Urine Blood NEGATIVE (NEG); Urine Color YELLOW; Urine Glucose NEGATIVE (NEG); Urine Protein NEGATIVE (NEG); Urine Specific Gravity <=1.005 (1.005-1.030); Urine Urobilinogen 0.2 mg/dL (0.2-1.0); Urine pH 7.5 (5.0-7.0)
[2020-01-17 01:52] LABS: Urine Amorphous Sediment 1+ /HPF (NONE SEEN); Urine Bacteria >50 /HPF (<20); Urine Culture Reflex Order REFLEXED; Urine RBC <5 /HPF (NONE SEEN)
[2020-01-17 04:57] LABS: Potassium 3.3 mmol/L (3.5-5.1)
[2020-01-17] MEDS ORDERED: POTASSIUM CL SA 10 MEQ TAB PO ONE ×3 (05:31→13:00)
--- NOTE | 2020-01-17 08:31 | RAD REPORT ---
EXAM DESCRIPTION: CT - Soft Tissue Neck Wo Contr - 01/17/2020 7:41 am CLINICAL HISTORY: Neck pain. Hypercalcemia COMPARISON: November 2016 TECHNIQUE: Computed axial tomography of the neck was obtained. IV contrast was not requested. Coron al and sagittal reconstruction was performed. All CT scans are performed using dose optimization technique as appropriate and may include automated exposure control or mA/KV adjustment according to patient size. FINDINGS: The pharynx, tongue base, larynx and subglottic trachea appear unremarkable The parotid, submandibular and thyroid glands appear unremarkable. No lymphadenopathy is seen Fluid within the sinuses/mastoids is not seen. Anterior fusion involves the C5 and C6 vertebra. Spondylosis C4-5 results in marked right foraminal s tenosis. Spondylosis C6-7 results in marked left foraminal stenosis IMPRESSION: No acute abnormality displayed
[2020-01-17] MEDS: NA CHLORIDE 0.9% 1,000 ML IV SCH ×2 (08:35→17:00)
--- NOTE | 2020-01-17 08:38 | RAD REPORT ---
EXAM DESCRIPTION: CT - CT CHEST,ABD,PELVIS W/O - 01/17/2020 7:41 am CLINICAL HISTORY: Chest and abdominal pain. Hypercalcemia COMPARISON: None. TECHNIQUE: Computed axial tomography of chest, abdomen and pelvis obtained. Contrast not requested All CT scans are performed using dose optimization technique as appropriate and may include automated exposure control or mA/KV adjustment according to patient size. FINDINGS: Evaluation of the mediastinum, cecy, vessels, solid organs and bowel is limited secondary to lack of IV and oral contrast administration Lungs are clear. No pleural effusion. No pericardial effusion. No mediastinal or hilar lymphadenopathy. Small to moderate hiatal hernia The liver, spleen, pancreas and adrenals appear grossly normal. Small nonobstructing left renal calculi. Right kidney grossly normal. Normal appendix. Diverticula stem from the colon without evidence of diverticulitis. Hysterectomy No adnexal mass Cystocele IMPRESSION: No acute abnormality involving the chest, abdomen/pelvis
[2020-01-17 09:25] VITALS: O2SAT 96
[2020-01-17] MEDS ORDERED: METOPROLOL TAR 50 MG TAB PO ONE (15:53)
[2020-01-17] MEDS ORDERED: CYCLOBENZAPRINE 10 MG TAB PO PRN (15:55)
[2020-01-17] MEDS ORDERED: MELOXICAM 7.5 MG TAB PO PRN (15:56)
[2020-01-17] MEDS ORDERED: DIAZEPAM 5 MG TABLET PO PRN (15:56)
[2020-01-17] MEDS ORDERED: methocarbamoL 750 MG TAB PO PRN (15:56)
[2020-01-17] MEDS ORDERED: AMLODIPINE 5 MG TAB PO ONE (17:00)
[2020-01-17] MEDS ORDERED: MORPHINE 2 MG/ML SYR IV ONE (17:00)
[2020-01-17] MEDS ORDERED: METOPROLOL TAR 25 MG TAB PO ONE (17:00)
--- NOTE | 2020-01-17 17:22 | RAD REPORT ---
EXAM DESCRIPTION: MRI - Brain Wo Cont - 01/17/2020 4:41 pm CLINICAL HISTORY: Confusion Headache, drowsiness COMPARISON: Head Brain Wo Cont dated 01/15/2020; CT CHEST,ABD,PELVIS W/O dated 01/17/2020; Soft Tissue Neck Wo Contr dated 01/17/2020 TECHNIQUE: Multi-sequence, multiplanar MR imaging of the brain was performed without contrast. FINDINGS: No intracranial hemorrhage, hydrocephalus or extra-axial fluid collections.Moderate brain atrophy with mild chronic periventricular and deep white matter microvascular ischemic changes. No ed millie or shift of midline structures. No findings to suspect brain mass. DWI is negative for acute CVA. Midline structures are normally formed. Mastoid air cells and paranasal sinuses are clear. IMPRESSION: No acute or aggressive intracranial abnormalities.
[2020-01-17] MEDS ORDERED: METOPROLOL TAR 25 MG TAB PO SCH (18:00)
[2020-01-18] MEDS: NA CHLORIDE 0.9% 1,000 ML IV SCH ×2 (00:34→08:02)
[2020-01-18] MEDS: METOPROLOL TAR 25 MG TAB PO SCH ×2 (05:21→17:12)
[2020-01-18 07:01] LABS: Absolute Lymphocytes (CBC) 0.7 K/uL (0.7-4.9); Basophils % 0.8 % (0-1.3); Hematocrit 22.7 % (36.0-45.0); Lymphocytes % 22.5 % (15.3-44.8); MPV 8.6 fL (7.6-11.3)
[2020-01-18 07:05] LABS: Potassium 3.1 mmol/L (3.5-5.1)
[2020-01-18 07:07] LABS: Phosphorus 2.4 mg/dL (2.5-4.9)
[2020-01-18 07:09] LABS: Magnesium 1.1 mg/dL (1.8-2.4)
[2020-01-18] MEDS ORDERED: Magnesium Sulfate 2gm IVPB 2 G/50 ML BAG IV ONE ×2 (08:00→11:00)
[2020-01-18] MEDS: POTASSIUM CL SA 10 MEQ TAB PO ONE ×2 (08:03→10:20)
[2020-01-18] MEDS: ESCITALOPRAM 20 MG TAB PO SCH (08:03)
[2020-01-18] MEDS: predniSONE 5 MG TAB PO SCH (08:03)
[2020-01-18] MEDS: AMLODIPINE 5 MG TAB PO SCH (08:05)
[2020-01-18] MEDS: ACETAMINOPHEN 500 MG TAB PO PRN ×2 (10:23→17:11)
--- NOTE | 2020-01-18 10:58 | CON ---
Date of Consultation: 01/18/2020 Reason For Consultation: Hypercalcemia. History Of Present Illness: Ms. Campo is a 69-year-old female with past medical history significant for history of chronic back pain and neck pain, diverticulitis, shingles, and history of peptic ulcer disease, presented to the hospital after she was sent over by Dr. Valdes's office when she was found to have severe anemia and hypercalcemia. The patient has been confused and altered for the past few weeks. The patient states that she has been having worsening lower back pain as well as neck pain. She has been started on aggressive IV fluids and hypercalcemia workup so far has shown normal PTH, w hich is appropriate for the hypercalcemia and SPEP levels are still pending at this time. The patien t states that other than the back pain, she feels okay at this time. Past Medical History: Significant for history of diverticulitis, shingles, bleeding ulcer, and endos copy. Family History: Noncontributory at this time. Social History: The patient reports no history of smoking, alcohol, drug use. Review of Systems: Positive for some mild constipation, severe back pain, neck pain, weakness, lethargy, and altered men blade status. All other review of systems are negative. Physical Examination: Vital Signs: At this time, temperature of 98.4, pulse rate of 57, respiratory rate of 17, and blood pressure 177/72. General: She appears in no acute distress. HEENT: Atraumatic head. Lungs: Clear to auscultation. Abdomen: Soft and nontender. Extremities: No evidence of edema. Laboratory Data: Sodium of 142, potassium of 3.1, chloride of 109, BUN of 20, creatinine of 1.27, im proving from 1.75 at the time of admission. Magnesium is down to 1.1 and phosphorus is at 2.4. Calc ium is improving to 8.9, it was 14.4 at the time of admission. So far, the workup for her hypercalce michelle is showing intact PTH level of 19.4, which is appropriate. Vitamin D levels are still pending. 25-hydroxy vitamin D level was 28.4. Her SPEP is still pending. Her lab also showed severe anemia w ith hemoglobin of 7.7 at the time of admission and it is back down to 7.2. She also has mild pancyto penia with WBC count of 3 and platelet count of 152. Urine cultures are showing no evidence of infec tion and immunofixation with electrophoresis is also pending at this time. Medications: Current Medications have been reviewed. The patient is getting normal saline to improv e her hypercalcemia. She is on amlodipine, diazepam p.r.n. for bedtime, meloxicam p.r.n., potassium replacements, and prednisone 5 mg a day. Impression: 1.Acute renal failure secondary to hypercalcemia, currently with improving renal function. 2.Hypercalcemia, etiology unclear, but could be secondary to multiple myeloma, especially with ongoi ng severe anemia as well. Plan: Her immunofixation and SPEP values are still pending. She has had MRI of her brain, which jenifer wed no intracranial abnormalities and she has also had a CT scan of her soft tissues of the neck, whi ch was unremarkable for any acute abnormalities. Her calcium level has however improved tremendously at this time. We will go ahead and discontinue meloxicam that has been ordered p.r.n. to avoid furt her insults to her kidney function. All other medications have been reviewed in detail. We will arsh l her family and update results as well. We will go ahead and switch her IV fluids to half-normal sa line with potassium replacements to improve her hypokalemia. We will also go ahead and give her magn esium replacements as well as phosphorus replacements. We will follow up closely. The patient may n eed blood transfusion if her hemoglobin falls any further. She might benefit from hematology consult ation as well. We will follow up closely. Thank you very much for this consultation. Please do not hesitate to call us with any questions or c oncerns. VV/MODL Voice ID: [id number] Report ID: [id number]
[2020-01-18] MEDS ORDERED: POTASSIUM PHOS 30 MM in NA CHLORIDE 0.9% 500 ML IV ONE (11:00)
[2020-01-18] MEDS ORDERED: NACHLORIDE 0.45% 1,000 ML with POTASSIUM CL 40 MEQ IV SCH ×2 (11:00)
[2020-01-18] MEDS: POTASS/SODIUM PHOSPHATE 1 PKT POWD.PACK PO SCH ×2 (11:16→19:59)
[2020-01-18 17:27] VITALS: BMI 26.9
[2020-01-18] MEDS: MAGNESIUM OXIDE 400 MG TAB PO SCH (19:59)
[2020-01-19] MEDS: METOPROLOL TAR 25 MG TAB PO SCH (04:08)
[2020-01-19 06:03] LABS: Hematocrit 30.6 % (36.0-45.0)
[2020-01-19 07:17] LABS: Magnesium 2.1 mg/dL (1.8-2.4); Phosphorus 1.5 mg/dL (2.5-4.9); Potassium 3.7 mmol/L (3.5-5.1)
[2020-01-19] MEDS: POTASS/SODIUM PHOSPHATE 1 PKT POWD.PACK PO SCH ×2 (08:36→21:10)
[2020-01-19] MEDS: AMLODIPINE 5 MG TAB PO SCH (08:36)
[2020-01-19] MEDS: ESCITALOPRAM 20 MG TAB PO SCH (08:36)
[2020-01-19] MEDS: MAGNESIUM OXIDE 400 MG TAB PO SCH ×2 (08:37→21:10)
[2020-01-19] MEDS: predniSONE 5 MG TAB PO SCH (08:39)
[2020-01-19] MEDS ORDERED: POTASSIUM CL SA 10 MEQ TAB PO ONE (09:00)
[2020-01-19] MEDS ORDERED: FUROSEMIDE 20 MG/ 2ML VIAL IV ONE (11:00)
[2020-01-19] MEDS: LOSARTAN POTASSIUM 50 MG TABLET PO SCH (11:21)
[2020-01-19] MEDS ORDERED: POTASSIUM PHOS 30 MM in NA CHLORIDE 0.9% 500 ML IV ONE (12:00)
--- NOTE | 2020-01-19 14:41 | P.PN ---
Subjective Date of Service: 01/19/20 Chief Complaint: Hypercalcemia; altered mental status; acute blood loss anemia Subjective: No new changes, Tolerating diet, Doing well Review of Systems General: Unremarkable Eyes: Unremarkable ENT: Unremarkable Respiratory: Unremarkable Cardiovascular: Unremarkable Gastrointestinal: Unremarkable Genitourinary: Unremarkable Musculoskeletal: Unremarkable Integumentary: Unremarkable Physical Examination - Vital Signs Temperature: 97.2 F Blood Pressure: 188/82 Pulse: 59 Respirations: 16 Pulse Ox (%): 94 - Physical Exam General: Alert, In no apparent distress HEENT: Atraumatic Neck: Supple, No LAD Respiratory: Clear to auscultation bilaterally Cardiovascular: No edema Gastrointestinal: Normal bowel sounds Musculoskeletal: No clubbing Integumentary: Other (ecchymosis noted on both arms ) Neurological: Normal reflexes 2+ External genitalia: No edema - Studies Medications List Reviewed: Yes Assessment And Plan Physician Review Additional Text: ANRDEW sec top hypercalcemia improving hypercalcemia ; likley sec to multiple myeloma ,SPEP and IF pending ,PTH levels appropriate S/P pamidronate htn uncontrolled sec to IVF anemia S/P transfusion improving hypomagnesemia improving hypophosphatemia Plan : suspect underlying RTA leading to electrolyte problems continue phos repletion monitor calcium await SPEP agree with stopping IVF
[2020-01-19] MEDS ORDERED: LOSARTAN POTASSIUM 50 MG TABLET PO SCH (21:00)
--- NOTE | 2020-01-20 04:08 | P.PN ---
Subjective Date of Service: 01/17/20 Patient's calcium low has come down to 11.3. Patient's mental status has much improved. Patient is clinically feeling much better. Have recommended out of bed and ambulate. Protein electrophoresis pending. When she is able to ambulate a little bit more safely then anticipate discharge home. MRI and CT imaging pending at this time. Review of Systems 10-point ROS is otherwise unremarkable Physical Examination - Vital Signs Temperature: 98.3 F Blood Pressure: 173/73 Pulse: 61 Respirations: 18 Pulse Ox (%): 96 - Physical Exam General: Alert, In no apparent distress, Oriented x3 Respiratory: Clear to auscultation bilaterally, Normal air movement Cardiovascular: Regular rate/rhythm, Normal S1 S2, No murmurs Gastrointestinal: Normal bowel sounds, Soft and benign, Non-distended, No tenderness Musculoskeletal: No clubbing, No swelling, No tenderness Integumentary: No rashes - Studies Medications List Reviewed: Yes Assessment & Plan - Problems (Diagnosis) (1) Hypercalcemia Current Visit: Yes Status: Acute (2) AMS (altered mental status) Current Visit: Yes Status: Acute (3) Anemia due to acute blood loss Current Visit: Yes Status: Acute - Plan Plan: 1. Aggressive IV hydration & IV Lasix 2. Pamidronate Given yesterday. Calcium is almost back to baseline. Will hold off on additional bisphosphonates 3. Monitroing H&H 4. Protein electrophoresis pending 5. Intact PTH & vitamin D levels normal ; parathyroid Hormone related peptide pending. 6. CT of the neck, chest, abdomen, and pelvis & Brain MRI pending-looking for malignancy as the etiology of hypercalcemia 7. Imperative to find the etiology of the hypercalcemia so we can get this corrected. Otherwise patient calcium level will continue to climb and patient will develop altered mental status again. 8. GI and DVT prophylaxis Discharge Plan: Home Plan to discharge in: Greater than 2 days - Advance Directives Does patient have a Living Will: No Does patient have a Durable POA for Healthcare: No - Code Status/Comfort Care Code Status: Full Code Critical Care: No Time Spent Managing PTS Care (In Minutes): 30
--- NOTE | 2020-01-20 04:15 | P.PN ---
Subjective Date of Service: 01/18/20 Hemoglobin is decreased once again. No signs of active bleeding. Calcium level is back to normal. Patient continues to feel much better neurologically. Have advised her to get out of bed and ambulate. CT imaging without contrast was negative. MRI of the brain was negative. We will ambulate her and protein electrophoresis pending. Will let hematology know that we will have her follow up as an outpatient. Review of Systems 10-point ROS is otherwise unremarkable Physical Examination - Vital Signs Temperature: 98.3 F Blood Pressure: 173/73 Pulse: 61 Respirations: 18 Pulse Ox (%): 96 - Physical Exam General: Alert, In no apparent distress, Oriented x3 Respiratory: Clear to auscultation bilaterally, Normal air movement Cardiovascular: Regular rate/rhythm, Normal S1 S2, No murmurs Gastrointestinal: Normal bowel sounds, Soft and benign, Non-distended, No tenderness Musculoskeletal: No clubbing, No swelling, No tenderness Integumentary: No rashes Neurological: Sensation intact, Cranial nerves 3-12 intact - Studies Medications List Reviewed: Yes Assessment & Plan - Problems (Diagnosis) (1) Hypercalcemia Current Visit: Yes Status: Acute (2) AMS (altered mental status) Current Visit: Yes Status: Acute (3) Anemia due to acute blood loss Current Visit: Yes Status: Acute - Plan Plan: 1. And continue with gentle IV hydration; DC Lasix 2. DC pamidronate 3. transfused 2 units of packed red blood cells 4. Protein electrophoresis pending 5. Intact PTH & vitamin D levels normal ; parathyroid Hormone related peptide pending. 6. CT of the neck, chest, abdomen, and pelvis & Brain MRI without contrast studies were negative 7. possibly multiple myeloma. Will need to follow up with Hematology at discharge. 8. GI and DVT prophylaxis Discharge Plan: Home Plan to discharge in: 48 Hours - Advance Directives Does patient have a Living Will: No Does patient have a Durable POA for Healthcare: No - Code Status/Comfort Care Code Status: Full Code Critical Care: No Time Spent Managing PTS Care (In Minutes): 30
--- NOTE | 2020-01-20 04:19 | P.PN ---
Subjective Date of Service: 01/19/20 Patient doing much better. No new complaints. Hemoglobin is stable. Calcium is stable. Some mild electrolyte abnormalities which are correcting. Patient needs to be more active and anticipate discharge tomorrow morning. Outpatient follow-up with Nephrology in Hematology to monitor calcium levels and work up the etiology which is looking to be multiple myeloma. Review of Systems 10-point ROS is otherwise unremarkable Physical Examination - Vital Signs Temperature: 98.3 F Blood Pressure: 173/73 Pulse: 61 Respirations: 18 Pulse Ox (%): 96 - Physical Exam General: Alert, In no apparent distress, Oriented x3 Respiratory: Clear to auscultation bilaterally, Normal air movement Cardiovascular: Regular rate/rhythm, Normal S1 S2, No murmurs Gastrointestinal: Normal bowel sounds, Soft and benign, Non-distended, No tenderness Musculoskeletal: No clubbing, No swelling, No tenderness Neurological: Sensation intact, Cranial nerves 3-12 intact - Studies Medications List Reviewed: Yes Assessment & Plan - Problems (Diagnosis) (1) Hypercalcemia Current Visit: Yes Status: Acute (2) AMS (altered mental status) Current Visit: Yes Status: Acute (3) Anemia due to acute blood loss Current Visit: Yes Status: Acute - Plan Plan: 1. HEPLOCK IV 2. monitoring calcium level closely 3. monitor H&H closely 4. Protein electrophoresis pending 5. Intact PTH & vitamin D levels normal ; parathyroid Hormone related peptide pending. 6. CT of the neck, chest, abdomen, and pelvis & Brain MRI without contrast studies were negative; may need imaging studies as an outpatient since renal function is stabilizing 7. possibly multiple myeloma. Will need to follow up with Hematology & nephrology at discharge. 8. GI and DVT prophylaxis Discharge Plan: Home Plan to discharge in: 24 Hours - Advance Directives Does patient have a Living Will: No Does patient have a Durable POA for Healthcare: No - Code Status/Comfort Care Code Status: Full Code Critical Care: No Time Spent Managing PTS Care (In Minutes): 30
[2020-01-20 05:59] LABS: Absolute Lymphocytes (CBC) 1.9 K/uL (0.7-4.9); Basophils % 0.4 % (0-1.3); Hematocrit 36.3 % (36.0-45.0); Lymphocytes % 28.3 % (15.3-44.8); MPV 9.4 fL (7.6-11.3); RBC Red Blood Cell Count 4.84 M/uL (3.86-4.86)
[2020-01-20 06:00] LABS: Magnesium 1.8 mg/dL (1.8-2.4)
[2020-01-20 06:01] LABS: Potassium 3.5 mmol/L (3.5-5.1)
[2020-01-20] MEDS ORDERED: POTASSIUM PHOS IN 0.9 % NACL 15 MMOL/250 ML BAG IV ONE (08:22)
[2020-01-20] MEDS ORDERED: HYDROCORTISONE 2.5% RECT CR PR PRN (08:23)
[2020-01-20] MEDS: ESCITALOPRAM 20 MG TAB PO SCH (08:35)
[2020-01-20] MEDS: POTASS/SODIUM PHOSPHATE 1 PKT POWD.PACK PO SCH (08:35)
[2020-01-20] MEDS: AMLODIPINE 5 MG TAB PO SCH (08:35)
[2020-01-20] MEDS: LOSARTAN POTASSIUM 50 MG TABLET PO SCH ×2 (08:35→20:56)
[2020-01-20] MEDS: predniSONE 5 MG TAB PO SCH (08:35)
[2020-01-20] MEDS: MAGNESIUM OXIDE 400 MG TAB PO SCH ×2 (08:36→20:56)
[2020-01-20] MEDS ORDERED: POTASSIUM PHOS 20 MM in NA CHLORIDE 0.9% 500 ML IV ONE (09:00)
--- NOTE | 2020-01-20 09:53 | P.PN ---
Subjective Date of Service: 01/20/20 Chief Complaint: Hypercalcemia; altered mental status; acute blood loss anemia Subjective: No new changes, Other (Complaints of generalized weakness body pain and difficulty in ambulating Also has pain in the left loin) Review of Systems 10-point ROS is otherwise unremarkable Physical Examination - Vital Signs Temperature: 97.2 F Blood Pressure: 176/74 Pulse: 60 Respirations: 18 Pulse Ox (%): 96 - Physical Exam General: Alert, In no apparent distress HEENT: Atraumatic, Normocephalic Neck: Supple Respiratory: Clear to auscultation bilaterally, Normal air movement Cardiovascular: No edema, Regular rate/rhythm Capillary refill: <2 Seconds Gastrointestinal: Soft and benign, W/out hepatosplenomegaly Musculoskeletal: No clubbing, No swelling Integumentary: No rashes, No breakdown Neurological: Normal speech, Normal strength at 5/5 x4 extr Lymphatics: No axilla or inguinal lymphadenopathy - Studies Medications List Reviewed: Yes Assessment & Plan - Problems (Diagnosis) (1) AMS (altered mental status) Current Visit: Yes Status: Acute (2) Hypercalcemia Current Visit: Yes Status: Acute Physician Review Additional Text: Acute kidney injury Hypercalcemia Accelerated hypertension Anemia of chronic disease Hypomagnesemia Hypophosphatemia Abdominal pain Possible multiple myeloma Plan Monitor renal parameters Appreciate help from nephrology Hypercalcemia improved hypercalcemia ; sunil sec to multiple myeloma ,SPEP and IF pending ,PTH levels appropriate S/P pamidronate SPEP pending Electrolytes monitored and replaced accordingly Need follow up with hematology and nephrology Anemia S/P transfusion improving hypomagnesemia improving hypophosphatemia suspect underlying RTA leading to electrolyte problems continue phos repletion monitor calcium Time Spent Managing Pts Care (In Minutes): 42
[2020-01-20] MEDS ORDERED: POTASSIUM CL SA 10 MEQ TAB PO ONE (10:23)
--- NOTE | 2020-01-20 10:29 | P.PN ---
Date of Service: 01/20/20 Vital Signs Temp Pulse Resp BP Pulse Ox 97.2 F 60 18 176/74 H 96 01/20/20 09:52 01/20/20 09:52 01/20/20 09:52 01/20/20 09:52 01/20/20 09:52 Medications Acetaminophen (Tylenol -Extra Strength) 500 mg PO Q6H PRN PRN Reason: Pain/fever Stop: 02/14/20 14:22 Last Admin: 01/18/20 17:11 Dose: 500 mg Documented by: Amlodipine Besylate (Norvasc) 10 mg PO DAILY [facility] Stop: 02/19/20 09:52 Carvedilol (Coreg) 3.125 mg PO BID 6AM 6PM [facility] Stop: 02/19/20 09:53 Cyclobenzaprine HCl (Flexeril) 5 mg PO TIDP PRN PRN Reason: MUSCLE SPASMS Stop: 02/16/20 15:56 Last Admin: 01/18/20 10:22 Dose: 5 mg Documented by: Diazepam (Valium) 5 mg PO BEDTIME PRN PRN Reason: INSOMNIA Stop: 02/16/20 15:57 Escitalopram Oxalate (Lexapro) 10 mg PO DAILY [facility] Stop: 02/17/20 09:01 Last Admin: 01/20/20 08:35 Dose: 10 mg Documented by: Hydrocortisone Acetate (Proctosol-Hc 2.5% Cream) 1 appl [place] TID PRN PRN Reason: HEMORRHOIDS Stop: 02/19/20 08:24 Potassium Phosphate 20 mm/ (Sodium Chloride) 500 mls @ 125 mls/hr IV 1X ONE; Protocol Stop: 01/20/20 12:59 Last Admin: 01/20/20 08:36 Dose: 500 mls Documented by: Potassium Phosphate (Potassium Phos 15 Mmol/250 Ml Ns) 15 mmol in 250 mls @ 62.5 mls/hr IV 1X ONE; Protocol Stop: 01/20/20 12:21 Last Admin: 01/20/20 08:22 Dose: Not Given Documented by: Losartan Potassium (Cozaar) 50 mg PO BID [facility] Stop: 02/19/20 21:01 Magnesium Oxide (Mag 0x Tab) 400 mg PO BID [facility] Stop: 02/17/20 21:01 Last Admin: 01/20/20 08:36 Dose: 400 mg Documented by: Methocarbamol (Robaxin) 750 mg PO TID PRN PRN Reason: MUSCLE SPASMS Stop: 02/16/20 15:57 Morphine Sulfate (Morphine Sulfate) 2 mg IV Q4H PRN PRN Reason: Pain scale 5-7 (Moderate) Stop: 02/14/20 14:22 Last Admin: 01/17/20 08:35 Dose: 2 mg Documented by: Potassium Phos/Sodium Phos (Neutra-Phos Pwd) 1 pkt PO BID [facility] Stop: 01/20/20 11:01 Last Admin: 01/20/20 08:35 Dose: 1 pkt Documented by: Prednisone (Deltasone) 5 mg PO DAILY [facility] Stop: 02/17/20 09:01 Last Admin: 01/20/20 08:35 Dose: 5 mg Documented by: Sodium Chloride (Normal Saline Flush) 10 ml IV BID [facility] Stop: 02/14/20 21:01 Last Admin: 01/20/20 08:36 Dose: 10 ml Documented by: Assessment/ Plan: Nephrology Feeling better except for back pain. CPS stable without CP or SOB. No acute events overnight. Vitals, medications, blood work and imaging reviewed in the chart. NAD. MMM. NCAT. Neck supple. CTA. RRR. Soft abd. No C/C/E. No rash. AA O. Normal speech. A/ ANDREW, improving. Hypokalemia Hypercalcemia, improved. HypoPO4 HypoMag Vitamin D3 Deficiency Anemia in chronic illness Iron deficiency P/ Continue current POC and Medications. Give potassium today. Increase Losartan BID. Follow up SPEP. No NSAIDs. AM labs. Daily weight. EXAM DESCRIPTION: CT - CT CHEST,ABD,PELVIS W/O - 01/17/2020 7:41 am CLINICAL HISTORY: Chest and abdominal pain. Hypercalcemia COMPARISON: None. TECHNIQUE: Computed axial tomography of chest, abdomen and pelvis obtained. Contrast not requested All CT scans are performed using dose optimization technique as appropriate and may include automated exposure control or mA/KV adjustment according to patient size FINDINGS: Evaluation of the mediastinum, cecy, vessels, solid organs and bowel is limited secondary to lack of IV and oral contrast administration Lungs are clear. No pleural effusion. No pericardial effusion. No mediastinal or hilar lymphadenopathy. Small to moderate hiatal hernia The liver, spleen, pancreas and adrenals appear grossly normal. Small nonobstructing left renal calculi. Right kidney grossly normal. Normal appendix. Diverticula stem from the colon without evidence of diverticulitis Hysterectomy No adnexal mas Cystocele IMPRESSION: No acute abnormality involving the chest, abdomen/pelvis
[2020-01-20] MEDS: AMLODIPINE 10 MG TAB PO SCH (12:25)
[2020-01-20] MEDS: carvediloL 3.125 MG TAB PO SCH ×2 (12:26→17:11)
--- NOTE | 2020-01-20 19:44 | RAD REPORT ---
EXAM DESCRIPTION: US - Abdomen Exam Complete - 01/20/2020 7:20 pm CLINICAL HISTORY: Abdominal pain. Abdominal Pain COMPARISON: No comparisons FINDINGS: The liver is normal in size, shape and echotexture. No focal liver lesions or intrahepatic biliary dilatation is seen. The gallbladder demonstrates no gallstones, pericholecystic fluid or gallbladder wall thickening. Co mmon bile duct is normal in caliber measuring 3 mm. Both kidneys are normal in size, shape and echotexture. No hydronephrosis, focal lesion of concern or perinephric fluid. The spleen is normal in size measuring 10 cm. The pancreas and aorta are obscured by bowel gas. The visualized aspects of the IVC are grossly normal. IMPRESSION: Unremarkable study except for limited assessment of the pancreas and aorta due to bowel gas.
[2020-01-21] MEDS: carvediloL 3.125 MG TAB PO SCH (06:00)
[2020-01-21 06:13] LABS: Phosphorus 1.8 mg/dL (2.5-4.9); Potassium 3.8 mmol/L (3.5-5.1)
[2020-01-21] MEDS ORDERED: POTASSIUM PHOS IN 0.9 % NACL 15 MMOL/250 ML BAG IV ONE (07:00)
[2020-01-21] MEDS: AMLODIPINE 10 MG TAB PO SCH (08:51)
[2020-01-21] MEDS: LOSARTAN POTASSIUM 50 MG TABLET PO SCH (08:51)
[2020-01-21] MEDS: ESCITALOPRAM 20 MG TAB PO SCH (08:51)
[2020-01-21] MEDS: MAGNESIUM OXIDE 400 MG TAB PO SCH (08:51)
[2020-01-21] MEDS: predniSONE 5 MG TAB PO SCH (08:51)
[2020-01-21 08:54] VITALS: BP 139/65; TEMP 97.7
--- NOTE | 2020-01-21 09:47 | P.DS ---
Admission Date: 01/15/20 Discharge Date: 01/21/20 Disposition: ROUTINE DISCHARGE Discharge Condition: GOOD Reason for Admission: Hypercalcemia; altered mental status; acute blood loss anemia - Problems (1) AMS (altered mental status) Status: Acute (2) Hypercalcemia Status: Acute Brief History of Present Illness: 69 yo female who presents to the hospital with severe anemia and hypercalcemia. According to the family that she has been confused for the last few weeks. Whenever they talked to her on the phone, she did not sound like herself. She had multiple family members talking to her and she was very confused. They spoke to her PCP, Dr. Valdes, who recommended labs. Patient was found to have severe hypercalcemia and anemia. Patient was sent to the hospital for admission. Unknown etiology of the hypercalcemia for the anemia. Will continue with lab testing. Hopefully, will be able to work patient up and get answers regarding etiology. Also concern for multiple myeloma as patient with elevated renal function. Patient be admitted to the hospital for inpatient workup. Hospital Course: Acute kidney injury Hypercalcemia Accelerated hypertension Anemia of chronic disease Hypomagnesemia Hypophosphatemia Abdominal pain Possible multiple myeloma Course Patient was admitted and was monitor closely under telemetry. Patient was found to have anemia and hypercalcemia. renal parameters were monitored and nephrology was consulted. Patient was given pamidronate along with IV hydration and if showed improvement in calcium levels . Renal parameters normalized. hypercalcemia ; likley sec to multiple myeloma ,SPEP and IF pending ,PTH levels appropriate S/P pamidronate SPEP pending Electrolytes monitored and replaced accordingly Need follow up with hematology and nephrology Anemia S/P transfusion improving hypomagnesemia improving hypophosphatemia suspect underlying RTA leading to electrolyte problems continue phos repletion The patient is being discharged home today in a stable condition with advice to follow up with PCP in 1 week and also with nephrology and also hematology 0 in 1 week. it was reiterated with her about the need to follow up as some of the workup is still pending. Vital Signs/Physical Exam: Temp Pulse Resp BP Pulse Ox 97.7 F 69 18 139/65 97 01/21/20 08:00 01/21/20 08:00 01/21/20 08:00 01/21/20 08:00 01/21/20 08:00 General: Alert, In no apparent distress HEENT: Atraumatic, Normocephalic Neck: Supple Respiratory: Clear to auscultation bilaterally, Normal air movement Cardiovascular: Regular rate/rhythm, Normal S1 S2 Capillary refill: <2 Seconds Gastrointestinal: Soft and benign, W/out hepatosplenomegaly Musculoskeletal: No clubbing, No swelling Integumentary: No rashes Neurological: Normal speech, Normal strength at 5/5 x4 extr Lymphatics: No axilla or inguinal lymphadenopathy Laboratory Data at Discharge: WBC 6.6 K/uL (4.3-10.9) D 01/20/20 05:17 Hgb 12.1 g/dL (12.0-15.0) 01/20/20 05:17 Hct 36.3 % (36.0-45.0) D 01/20/20 05:17 Plt Count 194 K/uL (152-406) D 01/20/20 05:17 PT 12.4 SECONDS (9.5-12.5) 01/16/20 04:03 INR 1.05 01/16/20 04:03 APTT 29.1 SECONDS (24.3-36.9) 01/16/20 04:03 Sodium 145 mmol/L (136-145) 01/21/20 05:51 Potassium 3.8 mmol/L (3.5-5.1) 01/21/20 05:51 BUN 15 mg/dL (7-18) 01/21/20 05:51 Creatinine 0.95 mg/dL (0.55-1.3) 01/21/20 05:51 Glucose 95 mg/dL (74-106) 01/21/20 05:51 Phosphorus 1.8 mg/dL (2.5-4.9) L 01/21/20 05:51 Magnesium 1.8 mg/dL (1.8-2.4) 01/20/20 05:17 Total Bilirubin 0.7 mg/dL (0.2-1.0) 01/16/20 04:03 AST 20 U/L (15-37) 01/16/20 04:03 ALT 19 U/L (12-78) 01/16/20 04:03 Alkaline Phosphatase 33 U/L (45-117) L 01/16/20 04:03 Home Medications: Acetaminophen with Codeine [Acetaminophen-Cod #2 Tablet] 1 tab PO Q4HR PRN 01/16/20 Escitalopram [Lexapro*] 10 mg PO DAILY 01/16/20 diazePAM [Valium*] 1 - 2 tab PO BEDTIME 01/16/20 methocarbamoL [Methocarbamol] 1 tab PO TID PRN 01/16/20 Amlodipine [Norvasc*] 10 mg PO DAILY #30 tab 01/20/20 Calcitonin [Miacalcin Nasal [place]*] 3.7 ml NS DAILY #1 spray.pump 01/20/20 Losartan Potassium [Cozaar*] 50 mg PO DAILY #30 tablet 01/20/20 Magnesium Oxide [Mag 0X*] 400 mg PO BID #14 tab 01/21/20 predniSONE [Prednisone*] 1 tab PO DAILY #10 tab 01/21/20 New Medications: Losartan Potassium [Cozaar*] 50 mg PO DAILY #30 tablet Magnesium Oxide [Mag 0X*] 400 mg PO BID #14 tab Calcitonin [Miacalcin Nasal [place]*] 3.7 ml NS DAILY #1 spray.pump Amlodipine [Norvasc*] 10 mg PO DAILY #30 tab predniSONE [Prednisone*] 1 tab PO DAILY #10 tab Patient Discharge Instructions: OK TO DC IV AND DC HOME. FOLLOW-UP WITH PRIMARY CARE PROVIDER IN 1-2 WEEKS. FOLLOW-UP WITH NEPHROLOGY AND HEMATOLOGY-ONCOLOGY IN 2 WEEKS. RETURN TO THE ER IF SYMPTOMS WORSENED. CALL DR. RODRIGUEZ AT [phone] IF ANY QUESTIONS REGARDING HOSPITAL STAY. PLEASE CALL THE FLOOR AT [phone] IF ANY MEDICATION OR NURSING QUESTIONS. Diet: AHA Activity: Fall precautions Followup: Eliezer Veliz DO [ACTIVE - CAN ADMIT] - Arcelia Arango MD [ACTIVE - CAN ADMIT] - Time spent managing pt's care (in minutes): 42
[2020-01-21 11:22] LABS: Vitamin D 1,25-Dihydroxy Total <8 pg/mL (18-72); Vitamin D,1,25-OH2, D2 <8 pg/mL
[2020-01-21 23:19] LABS: Albumin, (SPE) 3.8 g/dL (3.8-4.8); Alpha-1-Globulins 0.4 g/dL (0.2-0.3); Alpha-2-Globulins 1.1 g/dL (0.5-0.9); Gamma Globulins 0.6 g/dL (0.8-1.7); INTERPRETATION REPORT
== END 2020-01-21 12:20 | disposition home or self-care (01) | DRG 812 ==
LOC: ER 10:54 → ERHOLD 14:21 → 2ND 16:54
PROVIDERS: ADMIT Family Medicine; ATTEND Family Medicine
PROC: 30233N1 Transfusion of Nonautologous Red Blood Cells into Peripheral Vein, Percutaneous Approach (ICD-10-PCS; principal; 2020-01-15)
DX: D62 Acute posthemorrhagic anemia (principal); C90.00 Multiple myeloma not having achieved remission; N17.9 Acute kidney failure, unspecified; E83.52 Hypercalcemia; K59.00 Constipation, unspecified; I10 Essential (primary) hypertension; E83.42 Hypomagnesemia; E83.39 Other disorders of phosphorus metabolism; E87.6 Hypokalemia; D63.8 Anemia in other chronic diseases classified elsewhere; R10.9 Unspecified abdominal pain; Z11.59 Encounter for screening for other viral diseases
CPT/HCPCS: 36415; 36430; 70450; 70490; 70551; 71045; 71250; 74176; 76700; 80048; 80053; 80076; 81001; 82306; 82652; 83735; 83880; 83970; 84100; 84132; 84165; 84484; 85014; 85018; 85025; 85610; 85730; 86334; 86850; 86900; 86901; 87086; 87088; 93005; 96365; 96375; 97112; 97116; 97161; 99285; J1940; J2270; J2430; J3475; J3480; J7030; J7040; J7050; J7512; P9016; U0002

== ENCOUNTER 2020-08-04 08:03 | Emergency (ER) | payer OTHER ==
--- OUTSIDE RECORDS SUMMARY | 2020-08-04 08:06 | XMS REPORT | Continuity of Care Document ---
:1950 Author Organization [facility] t Address [address] [place] [address] Care Team Providers Name Role Phone Jadiel MENDOZA, T Attending Clinician Unavailable Only, Test Attending Clinician Unavailable Doctor Unassigned, Name Attending Clinician Unavailable Nurse, Urgent Attending Clinician Unavailable Pob1, Care Clinic Attending Clinician Unavailable Problems This patient has no known problems. Allergies, Adverse Reactions, Alerts This patient has no known allergies or adverse reactions. Medications This patient has no known medications. Procedures This patient has no known procedures. Encounters Start End Encounter Admission Attending Care Care Encounter Source Date/Time Date/Time Type Type Clinicians Facility Department ID 2020-06-25 2020-06-25 Letter ALEXANDRIA [place] [id number] 00:00:00 00:00:00 (Out) Aleksandra RENEE [id number] [place] [id number] 2020-06-24 2020-06-24 Laboratory Only, [facility] [id number] 11:04:22 11:19:22 Only Test Alexandra [id number] [place] [id number] [place] [id number] 2020-06-24 2020-06-24 Orders Doctor IBRAHIM [id number] 00:00:00 00:00:00 Only UnassignedTHELMA [id number] [place] [id number] [id number] 2020-01-06 2020-01-06 Telephone Nurse, [facility] [id number] 00:00:00 00:00:00 Urgent HEALTH [id number] [place] [id number] [facility] [phone] Primary & 370 Specialty Care 2020-01-05 2020-01-05 Urgent Pob1, Acute [facility] [id number] 14:41:49 15:01:49 [facility] [id number] [place] [id number] [facility] [phone] [place] [address] 2020-01-05 2020-01-05 Letter Doctor ALEXANDRIA [id number] 00:00:00 00:00:00 (Out) Unassigned, THELMA [id number] [place] [facility] [id number] Results This patient has no known results.
[2020-08-04] MEDS ORDERED: NA CHLORIDE 0.9% 500 ML ONE (08:46)
[2020-08-04 08:48] LABS: Absolute Lymphocytes (CBC) 0.7 K/uL (0.7-4.9); Basophils % 0.2 % (0-1.3); Hematocrit 42.3 % (36.0-45.0); Lymphocytes % 5.7 % (15.3-44.8); MPV 8.4 fL (7.6-11.3); RBC Red Blood Cell Count 4.74 M/uL (3.86-4.86)
[2020-08-04 09:04] LABS: Potassium 4.1 mmol/L (3.5-5.1)
[2020-08-04 09:43] LABS: Urine Bacteria NONE SEEN /HPF (<20); Urine RBC NONE SEEN /HPF (NONE SEEN)
[2020-08-04 09:46] LABS: Blood Morphology Comment NOTED (NOT SEEN); Platelet Estimate ADEQ; Stomatocytes 1+; White Blood Cell Scan OK (OK)
[2020-08-04 10:20] LABS: SARS-COV-2 RT PCR NEGATIVE (NEGATIVE)
[2020-08-04 11:00] LABS: Urine Blood NEGATIVE (NEG); Urine Glucose NEGATIVE (NEG); Urine Protein NEGATIVE (NEG); Urine pH 5.5 (5.0-7.0)
--- NOTE | 2020-08-04 12:14 | EDPHYS ---
Physician Documentation [facility] Name: Andressa Campo Age: 69 yrs Sex: Female : 1950 Arrival Date: 08/04/2020 Time: 08:07 Bed 7 Private MD: ED Physician Jean Costa HPI: 08/04 08:49 This 69 yrs old Female presents to ER via Ambulatory with complaints of rn Fever, Headache, weakness. 08:49 The patient reports fever, that was measured at 100 degrees Fahrenheit. Onset: The rn symptoms/episode began/occurred this morning. Modifying factors: there are no obvious modifying factors. Associated signs and symptoms: Pertinent positives: chills. Severity of symptoms: At their worst the symptoms were mild in the emergency department the symptoms are unchanged. The patient has experienced a previous episode. The patient has not recently seen a physician. Reports woke up with subjective fever, was 100, assoc with headache, malaise, fatigue, headache. Denies cough/sob/chest pain/abd pain. Called pcp because of her BP and chronic kidney problems, told her to come for eval. Denies blood in stool. . Historical: - Allergies: 08:25 No Known Allergies; aa5 - PMHx: 08:25 Hypertension; aa5 - Immunization history:: Adult Immunizations unknown. - Social history:: Smoking status: Patient denies any tobacco usage or history of. - Family history:: not pertinent. - Hospitalizations: : No recent hospitalization is reported. ROS: 09:15 Constitutional: + fever Eyes: Negative for injury, pain, redness, and discharge, Neck: rn Negative for injury, pain, and swelling, Cardiovascular: Negative for chest pain, palpitations, and edema, Respiratory: Negative for shortness of breath, cough, wheezing, and pleuritic chest pain, Abdomen/GI: Negative for abdominal pain, nausea, vomiting, diarrhea, and constipation, Back: Negative for injury and pain, : Negative for injury, bleeding, discharge, and swelling, MS/Extremity: Negative for injury and deformity, Skin: Negative for injury, rash, and discoloration, Neuro: Negative for numbness, tingling, and seizure. Exam: 09:15 Constitutional: This is a well developed, well nourished patient who is awake, alert, rn and in no acute distress. Head/Face: Normocephalic, atraumatic. Eyes: Pupils equal round and reactive to light, extra-ocular motions intact. Lids and lashes normal. Conjunctiva and sclera are non-icteric and not injected. Cornea within normal limits. Periorbital areas with no swelling, redness, or edema. ENT: MMM Cardiovascular: Tachycardic, regular Respiratory: No increased work of breathing, no retractions or nasal flaring. Abdomen/GI: Soft, non-tender Skin: Warm, dry MS/ Extremity: Pulses equal, no cyanosis. Neurovascular intact. Full, normal range of motion. Equal circumference. Neuro: Awake and alert, GCS 15, oriented to person, place, time, and situation. Cranial nerves II-XII grossly intact. Motor strength 5/5 in all extremities. Sensory grossly intact. Cerebellar exam normal. Normal gait. Vital Signs: 08:08 BP 144 / 74; Pulse 105; Resp 16 S; Temp 98.3(O); Pulse Ox 96% on R/A; aa5 09:28 Temp 98.3(O); aa5 09:28 BP 140 / 94; Pulse 90; Resp 16 S; Pulse Ox 99% on R/A; aa5 09:53 BP 140 / 64; Pulse 76; Resp 17; Pulse Ox 98% ; jl7 11:00 BP 132 / 59; Pulse 90; Resp 16 S; Pulse Ox 95% on R/A; aa5 12:00 BP 132 / 56; Pulse 89; Resp 18 S; Pulse Ox 95% on R/A; aa5 MDM: 08:09 Patient medically screened. rn 12:12 Differential diagnosis: viral Infection, bacterial infection, URI, UTI, rn gastroenteritis. Data reviewed: vital signs, nurses notes, lab test result(s), and as a result, I will discharge patient. Counseling: I had a detailed discussion with the patient and/or guardian regarding: the historical points, exam findings, and any diagnostic results supporting the discharge/admit diagnosis, lab results, the need for outpatient follow up, to return to the emergency department if symptoms worsen or persist or if there are any questions or concerns that arise at home. Response to treatment: the patient's symptoms have mildly improved after treatment, and as a result, I will discharge patient. Special discussion: I discussed with the patient/guardian in detail that at this point there is no indication for admission to the hospital. It is understood, however, that if the symptoms persist or worsen the patient needs to return immediately for re-evaluation. ED course: No acute findings, covid neg, good renal function, neg flu, normal h/h. 08/04 08:24 Order name: CBC with Diff; Complete Time: 09:49 rn 08/04 08:24 Order name: Basic Metabolic Panel; Complete Time: 09:15 rn 08/04 08:24 Order name: Flu rn 08/04 08:24 Order name: Procalcitonin; Complete Time: 09:49 rn 08/04 08:24 Order name: Urine Microscopic Only; Complete Time: 09:49 rn 08/04 08:24 Order name: IV Start; Complete Time: 08:32 rn 08/04 08:24 Order name: Urine Dipstick-Ancillary (obtain specimen); Complete Time: 09:27 rn 08/04 08:24 Order name: EKG; Complete Time: 08:25 rn 08/04 08:57 Order name: CBC Smear Scan; Complete Time: 09:49 EDNH 08/04 09:25 Order name: Urine Dipstick--Ancillary (enter results) eb 08/04 09:26 Order name: Urine Dipstick-Ancillary; Complete Time: 12:05 EDNH 08/04 10:21 Order name: COVID-19/FLU A+B; Complete Time: 12:05 EDNH 08/04 08:24 Order name: EKG - Nurse/Tech; Complete Time: 08:32 rn Administered Medications: 08:35 Drug: NS 0.9% 500 ml Route: IV; Rate: bolus; Site: right antecubital; Disposition: 08/04/20 12:13 Discharged to Home. Impression: Fever, unspecified. - Condition is Stable. - Discharge Instructions: Fever, Adult. - Medication Reconciliation Form, Thank You Letter, Antibiotic Education, Prescription Opioid Use form. - Follow up: Private Physician; When: As needed; Reason: Recheck today's complaints, Re-evaluation by your physician. - Problem is new. - Symptoms have improved. Signatures: Dis[facility] Freya Martinez RN RN iw Nieto, Roman, MD MD rn Calderon, Audri, RN RN aa5 Lesvia Zeng RN RN bw Corrections: (The following items were deleted from the chart) 09:28 08:25 CORONAVIRUS+MR.LAB.BRZ ordered. EDNH EDMS 12:34 12:13 08/04/2020 12:13 Discharged to Home. Impression: Fever, unspecified. Condition is iw Stable. Forms are Medication Reconciliation Form, Thank You Letter, Antibiotic Education, Prescription Opioid Use. Follow up: Private Physician; When: As needed; Reason: Recheck today's complaints, Re-evaluation by your physician. Problem is new. Symptoms have improved. rn
--- NOTE | 2020-08-04 12:14 | ER ---
Nurse's Notes [facility] Name: Andressa Campo Age: 69 yrs Sex: Female : 1950 Arrival Date: 08/04/2020 Time: 08:07 Bed 7 Private MD: Diagnosis: Fever, unspecified Presentation: 08/04 08:08 Chief complaint: Patient states: "I woke up this morning feeling cold and I took my aa5 temperature and it was 100.8*F, my blood pressure was 111/82, and my heart rate was 102, I called Dr. Veliz and he said to come here to be checked for covid-19". Pt reports COVID-19 test 3 weeks ago was negative. Pt denies cough, reports headache, reports SOB on exertion. 08:08 Onset of symptoms was August 04, 2020. aa5 08:08 Acuity: PRATIMA 3 aa5 08:08 Method Of Arrival: Ambulatory aa5 08:08 Coronavirus screen: fever, headache, Client presents with at least one sign or symptom aa5 that may indicate coronavirus-19. Standard/surgical mask placed on the client. Provider contacted for isolation considerations. Ebola Screen: Patient negative for fever greater than or equal to 101.5 degrees Fahrenheit, and additional compatible Ebola Virus Disease symptoms. Initial Sepsis Screen: Does the patient meet any 2 criteria? No. Patient's initial sepsis screen is negative. Does the patient have a suspected source of infection? No. Patient's initial sepsis screen is negative. Risk Assessment: Do you want to hurt yourself or someone else? Patient reports no desire to harm self or others. Triage Assessment: 08:10 Headache History: The patient has had previous headaches and this one is similar to aa5 previous episodes. Historical: - Allergies: 08:25 No Known Allergies; aa5 - PMHx: 08:25 Hypertension; aa5 - Immunization history:: Adult Immunizations unknown. - Social history:: Smoking status: Patient denies any tobacco usage or history of. - Family history:: not pertinent. - Hospitalizations: : No recent hospitalization is reported. Screenin:15 Abuse screen: Denies threats or abuse. Nutritional screening: No deficits noted. aa5 Tuberculosis screening: No symptoms or risk factors identified. Fall Risk None identified. Assessment: 08:10 General: Appears comfortable, Behavior is calm, cooperative, Reports chills/fever. aa5 Pain: Complains of pain in head Pain currently is 5 out of 10 on a pain scale. Quality of pain is described as aching, Is continuous. Neuro: Level of Consciousness is awake, alert, obeys commands, Oriented to person, place, time, situation. Cardiovascular: Patient's skin is warm and dry. Respiratory: Reports shortness of breath on exertion Airway is patent Respiratory effort is even, unlabored, Respiratory pattern is regular, symmetrical, Breath sounds are clear bilaterally. Denies cough. GI: Abdomen is round non-distended. : No signs and/or symptoms were reported regarding the genitourinary system. EENT: No signs and/or symptoms were reported regarding the EENT system. Denies nasal congestion, nasal discharge. Derm: Skin is pink, warm \\T\\ dry. Musculoskeletal: Range of motion: intact in all extremities. 09:15 Reassessment: Patient is alert, oriented x 3, equal unlabored respirations, skin aa5 warm/dry/pink. Pt ambulatory to restroom. 09:30 Reassessment: Patient is alert, oriented x 3, equal unlabored respirations, skin aa5 warm/dry/pink. Pt back in bed, using her cell phone. . 11:00 Reassessment: Patient is alert, oriented x 3, equal unlabored respirations, skin aa5 warm/dry/pink. Awaiting disposition. 12:30 Reassessment: Patient is alert, oriented x 3, equal unlabored respirations, skin aa5 warm/dry/pink. Vital Signs: 08:08 BP 144 / 74; Pulse 105; Resp 16 S; Temp 98.3(O); Pulse Ox 96% on R/A; aa5 09:28 Temp 98.3(O); aa5 09:28 BP 140 / 94; Pulse 90; Resp 16 S; Pulse Ox 99% on R/A; aa5 09:53 BP 140 / 64; Pulse 76; Resp 17; Pulse Ox 98% ; jl7 11:00 BP 132 / 59; Pulse 90; Resp 16 S; Pulse Ox 95% on R/A; aa5 12:00 BP 132 / 56; Pulse 89; Resp 18 S; Pulse Ox 95% on R/A; aa5 ED Course: 08:07 Patient arrived in ED. mr 08:08 Arm band placed on Patient placed in an exam room, on a stretcher. aa5 08:08 Patient has correct armband on for positive identification. Bed in low position. Call aa5 light in reach. Side rails up X 1. Pulse ox on. NIBP on. 08:09 Jean Costa MD is Attending Physician. rn 08:11 Alissa Wu, REJI is Primary Nurse. aa5 08:23 Triage completed. aa5 08:30 Initial lab(s) drawn, by me, sent to lab. Inserted saline lock: 20 gauge in right kj1 antecubital area, using aseptic technique. Blood collected. 09:20 Urine collected: clean catch specimen, clear, Urine micro sent to lab. aa5 10:12 Urine Dipstick--Ancillary (enter results) Sent. aa5 12:30 No provider procedures requiring assistance completed. IV discontinued, intact, aa5 bleeding controlled, No redness/swelling at site. Pressure dressing applied. Administered Medications: 08:35 Drug: NS 0.9% 500 ml Route: IV; Rate: bolus; Site: right antecubital; bw Outcome: 12:13 Discharge ordered by MD. rn 12:30 Discharged to home ambulatory. aa5 12:30 Condition: stable 12:30 Discharge instructions given to patient, Instructed on discharge instructions, follow up and referral plans. Demonstrated understanding of instructions, follow-up care. 12:34 Patient left the ED. iw Signatures: Cathy Armendariz mr MartinezFreya RN RN iw Jean Costa MD MD rn Calderon, Audri, REJI randall5 [place] RN RN jl7 Shilpi Padilla 1 Lesvia Zeng RN RN bw Corrections: (The following items were deleted from the chart) 08:51 08:10 Respiratory: Airway is patent Respiratory effort is even, unlabored, Respiratory aa5 pattern is regular, symmetrical, aa5
--- NOTE | 2020-08-04 12:28 | EKG ---
Test Date: 2020-08-04 Test Time: 08:38:17 Accounts Clerk: ABIODUN MEASUREMENT RESULTS: Intervals: Rate: 92 DC: 122 QRSD: 68 QT: 340 QTc: 420 [place]: P: 33 DC: 122 QRS: -31 T: 230 INTERPRETIVE STATEMENTS: Normal sinus rhythm Possible Left atrial enlargement Left axis deviation Left ventricular hypertrophy Nonspecific ST and T wave abnormality Abnormal ECG Compared to ECG 01/15/2020 11:45:02 Left-axis deviation now present ST (T wave) deviation still present Electronically Signed On 08-04-20 12:27:39 SENIOR PRODUCT DEVELOPMENT MANAGER by Tee Daniels
[2020-08-04 12:45] VITALS: TEMP 98.3
[2020-08-04 12:47] VITALS: BP 140/64; O2SAT 98
== END 2020-08-04 12:34 | disposition home or self-care (01) ==
LOC: ER 08:03
DX: R50.9 Fever, unspecified (principal); Z20.822 Contact with and (suspected) exposure to COVID-19; I10 Essential (primary) hypertension
CPT/HCPCS: 93005; 85025; 80048; 36415; 84145; 0240U; 99284; J7040; 81003; 81015